=== PATIENT | male | born 1935 | race Caucasian/White ===

== ENCOUNTER 2022-10-16 08:01 | Inpatient (IN) | payer MEDICARE ==
[~2022-10-16] VITALS: Ht 182.9 cm; Wt 97.2 kg
[2022-10-16 08:01] VITALS: BP_SYST 104
--- NOTE | 2022-10-16 08:01 | NUR ---
BROUGHT IN BY [facility], PLACED IN BED #8 AND TRIAGED. REPORT GIVEN TO LAVELL
[2022-10-16] MEDS ORDERED: NACL 0.9% 1,000 ML IV ONE ×2 (08:15→15:00)
--- NOTE | 2022-10-16 09:00 | NUR ---
UNABLE TO GAIN IV ACCESS PERIPHERALLY, MD MITCHELL UNABLE TO OBTAIN PERIPHERAL EJ. MD MITCHELL AT BEDSIDE PLACING CENTRAL LINE FOR IV ACCESS AND BLOOD DRAW. PT TOLERATED WELL. XRAY ORDERED TO VERIFY PLACEMENT. PER MD MITCHELL, OK TO USE FOR IV FLUIDS. VSS. NAD NOTED. WILL CONT TO MONITOR PT.
--- NOTE | 2022-10-16 09:05 | NUR ---
SON DINAH FRAGA CALLED IN AT [phone] CALL BACK NUMBER [phone]
[2022-10-16 09:11] LABS: ANION GAP 13 (5-15); CALCIUM 8.4 mg/dL (8.4-11.0); CHLORIDE 106 mmol/L (98-107); CREATININE 2.42 mg/dL (0.55-1.30); GLUCOSE 236 mg/dL (70-99); UREA NITROGEN, BLOOD 98 mg/dL (8-21)
[2022-10-16 09:17] LABS: ALANINE AMINOTRANSFERASE 46 U/L (12-78); ALBUMIN 2.2 g/dL (3.4-4.8); AMYLASE 65 U/L (0-100); ASPARTATE AMINOTRANSFERASE 26 U/L (10-37); LIPASE 303 U/L (73-393); TOTAL BILIRUBIN 0.4 mg/dL (0.0-1.0)
[2022-10-16 09:19] LABS: HEMATOCRIT 29.5 % (36-54); HEMOGLOBIN 9.6 g/dL (14.0-18.0); MEAN CORPUSCULAR HEMOGLOBIN 32 pg (27-31); MEAN CORPUSCULAR HGB CONC 33 % (32-36); MEAN CORPUSCULAR VOLUME 98 fL (79.0-98.0); PLATELET COUNT (AUTO) 273 K/uL (130-430); RED BLOOD CELL COUNT(AUTO) 3.02 MIL/uL (4.2-6.2); RED CELL DISTRIBUTION WIDTH 14.8 % (9.0-15.0); WHITE BLOOD COUNT (AUTO) 25.6 K/uL (4.8-10.8)
[2022-10-16 09:35] LABS: INR 1.2 (0.80-1.20)
[2022-10-16 10:00] LABS: ATYPICAL LYMPHOCYTES % 11 % (0-0); BASOPHILS % (MANUAL) 0 % (0-2); EOSINOPHILS % (MANUAL) 0 % (0-7); LYMPHOCYTES % (MANUAL) 4 % (20-46); MONOCYTES % (MANUAL) 2 % (0-11)
[2022-10-16] MEDS ORDERED: PIPERACILLIN/TAZO 4.5GM/DEX-IS 100 ML IV SCH (10:00)
[2022-10-16 10:01] LABS: METAMYELOCYTES % 3 % (0-0); MYELOCYTES % 1 % (0-0)
[2022-10-16] MEDS ORDERED: PIPERACILLIN/TAZO 4.5GM/DEX-IS 100 ML IV ONE (10:03)
--- NOTE | 2022-10-16 10:10 | NUR ---
[facility] CONTACTED FOR AUTHORIZATION OF ADMISSION.
--- NOTE | 2022-10-16 10:38 | NUR ---
[facility] CONTACTED FOR ADMISSION AUTHORIZATION. [facility] (DR. COHEN) WILL RETURN CALL TO SPEAK W/ DR. MITCHELL.
--- NOTE | 2022-10-16 10:45 | NUR ---
DR. FENG W/ DR. COHEN ([facility] ) REGARDING THE PT'S CASE FOR AUTHORIZATION.
[2022-10-16] MEDS ORDERED: VANCOMYCIN HCL 1,500 MG in NS 250 ML IV ONE (11:00)
--- NOTE | 2022-10-16 11:16 | NUR ---
PENDING AUTHORIZATION NUMBER FROM [facility].
--- NOTE | 2022-10-16 11:30 | NUR ---
[facility] AUTHORIZATION #[id number]. [facility] IS LOOKING FOR BED FOR PATIENT. [facility] WILL CALL WITH UPDATE.
--- NOTE | 2022-10-16 12:55 | NUR ---
Admit bed requested Patient will be admitted to care of . Admitted to TELE unit. Diagnosis GI BLEED Inpatient (Yes or No) Y Observation (Yes or No) N Orientation concerns or request close to nursing station (Yes or No) N Covid Status POSITIVE On vent or bipap N Isolation requirements Y Needs a sitter N From Home (Yes or if No enter name of facility) HOME Requires Dialysis (Yes or No) N Med Rec Completed (Yes of No) UNAVAILABLE/POOR HISTORIAN
--- NOTE | 2022-10-16 13:00 | NUR ---
UNABLE TO OBTAIN MED REC. PT IS CONFUSED, DOES NOT HAVE LIST AND DOES NOT HAVE EMERGENCY CONTACT IN [employer] TO ATTEMPT TO CALL AND ASK ABOUT MEDICINES TAKEN AT HOME.
[2022-10-16] MEDS ORDERED: DEXA6TAB5 PO (16:20)
[2022-10-16] MEDS ORDERED: LIP40 PO (16:20)
[2022-10-16] MEDS ORDERED: NITSL SL (16:20)
[2022-10-16] MEDS ORDERED: NEU100 PO (16:20)
[2022-10-16] MEDS ORDERED: LEVO500T20 PO (16:20)
[2022-10-16] MEDS ORDERED: ALBU90AE2 (16:20)
[2022-10-16] MEDS ORDERED: CYAN100097 PO (16:20)
[2022-10-16] MEDS ORDERED: APIX5TAB PO (16:20)
[2022-10-16] MEDS ORDERED: CLOP75TA2 PO (16:20)
[2022-10-16] MEDS ORDERED: METR-154 PO (16:20)
[2022-10-16] MEDS ORDERED: FURO-150 PO (16:20)
[2022-10-16] MEDS ORDERED: POTA10TA58 PO (16:20)
[2022-10-16] MEDS ORDERED: FOLI-43 PO (16:20)
[2022-10-16] MEDS ORDERED: COLC0.6C3 PO (16:20)
[2022-10-16] MEDS ORDERED: RANO500T2 PO (16:20)
[2022-10-16] MEDS ORDERED: ECO81 PO (16:20)
[2022-10-16] MEDS ORDERED: METO25CA PO (16:20)
[2022-10-16 17:05] LABS: HEMATOCRIT 30.4 % (36-54); HEMOGLOBIN 9.9 g/dL (14.0-18.0); MEAN CORPUSCULAR HEMOGLOBIN 32 pg (27-31); MEAN CORPUSCULAR HGB CONC 33 % (32-36); MEAN CORPUSCULAR VOLUME 97 fL (79.0-98.0); PLATELET COUNT (AUTO) 273 K/uL (130-430); RED BLOOD CELL COUNT(AUTO) 3.12 MIL/uL (4.2-6.2); RED CELL DISTRIBUTION WIDTH 14.9 % (9.0-15.0)
[2022-10-16 17:27] LABS: WHITE BLOOD COUNT (AUTO) 36.1 K/uL (4.8-10.8)
--- NOTE | 2022-10-16 17:30 | NUR ---
LAB CALLED W/ CRITICAL WBC VALUE OF 36.1. VALUE REPORT TO .
[2022-10-16 17:48] LABS: BAND % (MANUAL) 8 % (0-6); BASOPHILS % (MANUAL) 0 % (0-2); EOSINOPHILS % (MANUAL) 0 % (0-7); LYMPHOCYTES % (MANUAL) 5 % (20-46); METAMYELOCYTES % 1 % (0-0); MONOCYTES % (MANUAL) 7 % (0-11)
[2022-10-16] MEDS ORDERED: PIPERACILLIN/TAZO 3.375 GM in NS 50 ML IV SCH (18:00)
[2022-10-16] MEDS ORDERED: PIPERACILLIN/TAZOBACTAM 3.375 GM/VIAL (ZOSYN) IV ONE (18:09)
--- NOTE | 2022-10-16 18:30 | NUR ---
Placed in room 120A, report given to RHINA SHANE AT BEDSIDE. ALL QUESTIONS ANSWERED. PT COVID+. AAOX4. 4LPM VIA N/C. VSS. NAD NOTED. END OF CARE.
--- NOTE | 2022-10-16 18:30 | NUR ---
ADMISSION NOTES, RECEIVED PT FROM [facility] C/O SVITLANA AWY, PT ADMITTED FOR COVID 19 A,D GI BLEED UNDER THE CARE OF DR ORDOÑEZ. SAFETY PREC IN PLACE.CALL LIGHT IN REACH, BED IN LOW POSITION.
[2022-10-16 18:35] VITALS: BP_SYST 102
--- NOTE | 2022-10-16 19:52 | NUR ---
ENDORSED TO NIGHT SVITLANA GAINES THAT PT HAS NOT BEEN ADMITTED YET BECAUSE PT WAS DIRTY WHEN HE CAME IN AND I GIVE PT A CHG BATH AND CHANGED HIS CHUCKS. I ALSO SPOKE WITH HER DAUGHTER AND TOLD HER THE THE ONLY BELONGINGS THE PT HAS AT BEDSIDE IS HIS CA AND [facility] ID, AND THE CUT UP SWEAT SHIRT WAS DIRTY AND I TRASHED IT. SHE SAID IT IS OKAY. TOLD HER THAT PT IS LOOKING FOR HIS MONEY ( 248 $). SHE TOLD ME THAT IT IS IN THEIR HOUSE.
[2022-10-16 20:00] VITALS: BP_SYST 110
[2022-10-16 20:52] VITALS: BP_SYST 101
[2022-10-16] MEDS: PIPERACILLIN/TAZO 3.375 GM in NS 50 ML IV SCH (23:51)
[2022-10-17] MEDS ORDERED: PIPERACILLIN/TAZOBACTAM 3.375 GM/ D5W 50 ML IV SCH ×2
[2022-10-17 00:20] VITALS: BP_SYST 108
--- NOTE | 2022-10-17 03:40 | NUR ---
Consultation Paged Reason for Consultation: Covid +, Sepsis Was consult called: Y Person who was notified: Delphine Consulting Physician: Stan Newman Ordering Physician: Dr. Diaz
[2022-10-17 04:00] VITALS: BP_SYST 110
--- NOTE | 2022-10-17 04:40 | NUR ---
Consultation Paged Reason for Consultation:GI BLEED Was consult called: Y Person who was notified: Delphine Consulting Physician: Dr. Acosta (Dr. Montgomery is applications administrator) Ordering Physician: Dr. Diaz
[2022-10-17] MEDS: PIPERACILLIN/TAZO 3.375 GM in NS 50 ML IV SCH ×3 (06:21→18:37)
[2022-10-17 06:53] LABS: BASOPHILS % (AUTO) 0.1 % (0.0-2.0); HEMATOCRIT 24.1 % (36-54); LYMPHOCYTES % (AUTO) 6.9 % (20.5-51.5); MEAN CORPUSCULAR HEMOGLOBIN 32 pg (27-31); MEAN CORPUSCULAR HGB CONC 33 % (32-36); MEAN CORPUSCULAR VOLUME 97 fL (79.0-98.0); MONOCYTES # (AUTO) 2.6 K/uL (0.0-1.0); MONOCYTES % (AUTO) 8.9 % (1.7-9.3); NEUTROPHILS # (AUTO) 24.6 K/uL (1.8-7.7); PLATELET COUNT (AUTO) 233 K/uL (130-430); RED BLOOD CELL COUNT(AUTO) 2.47 MIL/uL (4.2-6.2); RED CELL DISTRIBUTION WIDTH 14.7 % (9.0-15.0); WHITE BLOOD COUNT (AUTO) 29.2 K/uL (4.8-10.8)
[2022-10-17 06:59] LABS: NEUTROPHILS % (AUTO) 84.1 % (40.0-70.0)
--- NOTE | 2022-10-17 07:17 | NUR ---
Patient davidjessa;janina last night, got his scheduled medications, did not verbalize any pain. to endorse to oncoming shift for continuity of care
[2022-10-17 07:52] LABS: ALANINE AMINOTRANSFERASE 44 U/L (12-78); ANION GAP 11 (5-15); ASPARTATE AMINOTRANSFERASE 31 U/L (10-37); CALCIUM 7.4 mg/dL (8.4-11.0); CHLORIDE 112 mmol/L (98-107); CREATININE 2.93 mg/dL (0.55-1.30); GLUCOSE 158 mg/dL (70-99); THYROID STIMULATING HORMONE 1.31 uIu/mL (0.36-3.74); TOTAL BILIRUBIN 0.8 mg/dL (0.0-1.0)
[2022-10-17 08:19] LABS: UREA NITROGEN, BLOOD 123 mg/dL (8-21)
[2022-10-17 08:50] LABS: CHOLESTEROL 85 mg/dL (<200); HDL CHOLESTEROL 31 mg/dL (>45); TRIGLYCERIDES 248 mg/dL (30-150)
[2022-10-17] MEDS ORDERED: VANCOMYCIN HCL 1,500 MG in NS 250 ML IV ONE (10:00)
[2022-10-17] MEDS: NACL 0.9% 1,000 ML IV SCH (11:41)
[2022-10-17 13:21] VITALS: BP_SYST 114
--- NOTE | 2022-10-17 14:12 | NUR ---
CM: Faxed Clinicals to [facility]
[2022-10-17 15:17] LABS: BILIRUBIN,URINE NEGATIVE (NEGATIVE); CLARITY/URINE CLEAR (CLEAR); COLOR,URINE YELLOW (YELLOW); GLUCOSE,URINE NEGATIVE (NEGATIVE); KETONES,URINE NEGATIVE (NEGATIVE); LEUKOCYTE ESTERASE ,URINE NEGATIVE (NEGATIVE); NITRITE, URINE NEGATIVE (NEGATIVE); PROTEIN URINE NEGATIVE (NEGATIVE); UROBILINOGEN,URINE 0.2 (0.2-1.0)
[2022-10-17 15:21] LABS: BLOOD, URINE TRACE (NEGATIVE)
[2022-10-17 15:35] LABS: BACTERIA,URINE RARE /HPF (None Seen); MUCUS,URINE 1+ /LPF (None Seen); WBC,URINE 0-3 /HPF (0-3)
--- NOTE | 2022-10-17 16:54 | NUR ---
0800: NO S/S OF ANY ACUTE DISTRESS NOTED. ABNORMAL LAB TO DR. Christiana LOOMIS WITH NEW ORDER RECEIVED NOTED AND WILL CARRY OUT ORDERED. 1030: ABNORMAL LAB RELAYED TO DR. ORDOÑEZ WITH NEW ORDER RECEIVED FOR NEP.CONSULT WITH DR. FLORES. 1200: RETURN CALL FROM DR. Lizet HUTCHINS COVERING FOR DR. FLORES WITH NEW ORDERS RECEIVED NOTED AND CARRY OUT ORDERED. 1600: ADMINISTERED IV ANTIBIOTIC ORDERED NO ADVERSE REACTION NOTED. WILL CONTINUE TO MONITOR PATIENT
[2022-10-17 17:36] VITALS: BP_SYST 114
--- NOTE | 2022-10-17 19:00 | NUR ---
DR. Lizet HUTCHINS DID COME AND SEE PATIENT TONIGHT WITH NEW ORDER FOR KIDNEY JEMAL, INCREASE IV FLUID TO 75 CC/HR, LAB WORK FOR TOMORROW. URINE FOR UA AND URINE FOR EOSINOPHIL, LAB WILL USE UA THAT WAS SENT EARLIER TODAY. ENDORSED PATIENT TO PM SHIFT NURSE.
[2022-10-17 20:00] VITALS: BP_SYST 127
[2022-10-17] MEDS: ATORVASTATIN 20 MG TABLET PO SCH (21:21)
[2022-10-17] MEDS: RANOLAZINE 500 MG TAB.SR.12H PO SCH (21:21)
[2022-10-17 21:22] VITALS: BP_SYST 121
[2022-10-18] VITALS: BP_SYST 127
[2022-10-18] MEDS: PIPERACILLIN/TAZO 3.375 GM in NS 50 ML IV SCH ×4 (02:41→19:08)
[2022-10-18 04:00] VITALS: BP_SYST 119
--- NOTE | 2022-10-18 07:30 | NUR ---
Patient stable this shift, he is going for EGD today vitals within normal, to endorse to oncoming shift for continuity of care
[2022-10-18] MEDS ORDERED: DIPHENHYDRAMINE INJ 50 MG/ML VIAL ONE (07:46)
[2022-10-18] MEDS ORDERED: SIMETHICONE 40 MG/0.6 ML ML ONE (07:46)
[2022-10-18] MEDS ORDERED: BENZOCAINE 20% 0.5mL UD SPRAY MM ONE (07:46)
[2022-10-18] MEDS ORDERED: fentaNYL CITRATE/PF 100 MCG/2 ML AMP ONE (07:47)
[2022-10-18] MEDS ORDERED: MIDAZOLAM HCL 5 MG/5 ML VIAL ONE (07:47)
[2022-10-18 08:00] VITALS: BP_SYST 142
--- NOTE | 2022-10-18 08:00 | NUR ---
Initial Notes Sleepy but responsive, on o2 4L at this time, o2 sat at 97%. Denies any pain or discomfort. IVF infusing well. Aware of having EGD today. Keep NPO. IVF infusing well. Afebrile. Bed alarm on. Maintain on contact/droplet isolation.
[2022-10-18 08:04] LABS: ALANINE AMINOTRANSFERASE 38 U/L (12-78); ALBUMIN 1.9 g/dL (3.4-4.8); ANION GAP 10 (5-15); ASPARTATE AMINOTRANSFERASE 24 U/L (10-37); CHLORIDE 111 mmol/L (98-107); GLUCOSE 162 mg/dL (70-99); PHOSPHORUS 5.5 mg/dL (2.7-4.5); TOTAL BILIRUBIN 0.6 mg/dL (0.0-1.0); VANCOMYCIN,RANDOM 21.5 ug/mL
[2022-10-18 08:27] LABS: BASOPHILS % (AUTO) 0.1 % (0.0-2.0); EOSINOPHILS % (AUTO) 0.1 % (0.0-4.0); LYMPHOCYTES # (AUTO) 1.6 K/uL (1.0-5.5); LYMPHOCYTES % (AUTO) 5.8 % (20.5-51.5); MEAN CORPUSCULAR HEMOGLOBIN 32 pg (27-31); MEAN CORPUSCULAR HGB CONC 33 % (32-36); MEAN CORPUSCULAR VOLUME 100 fL (79.0-98.0); MONOCYTES # (AUTO) 1.8 K/uL (0.0-1.0); MONOCYTES % (AUTO) 6.4 % (1.7-9.3); NEUTROPHILS # (AUTO) 24.7 K/uL (1.8-7.7); PLATELET COUNT (AUTO) 212 K/uL (130-430); WHITE BLOOD COUNT (AUTO) 28.2 K/uL (4.8-10.8)
[2022-10-18 08:28] LABS: CALCIUM 6.7 mg/dL (8.4-11.0)
[2022-10-18 08:29] LABS: UREA NITROGEN, BLOOD 114 mg/dL (8-21)
[2022-10-18 08:51] LABS: HEMATOCRIT 20.9 % (36-54); HEMOGLOBIN 6.8 g/dL (14.0-18.0)
[2022-10-18] MEDS ORDERED: COLCHICINE 0.6 MG TABLET PO SCH (09:00)
[2022-10-18] MEDS: FOLIC ACID 1 MG TABLET PO SCH (09:00)
[2022-10-18] MEDS ORDERED: FUROSEMIDE 20 MG TABLET PO SCH (09:00)
[2022-10-18] MEDS: GABAPENTIN 100 MG CAPSULE PO SCH (09:00)
[2022-10-18] MEDS: RANOLAZINE 500 MG TAB.SR.12H PO SCH ×2 (09:00→20:44)
--- NOTE | 2022-10-18 09:00 | NUR ---
Notes/EGD- PATIENT is having EGD at bedside at this time.
[2022-10-18] MEDS ORDERED: PANTOPRAZOLE SODIUM 40 MG/VIAL (PROTONIX) IVP ONE (10:15)
[2022-10-18] MEDS: METOPROLOL SUCCINATE 25 MG TAB.SR.24H (TOPROL XL) PO SCH (11:29)
[2022-10-18] MEDS: NACL 0.9% 1,000 ML IV SCH ×2 (11:30→14:25)
[2022-10-18] MEDS ORDERED: CALCIUM GLUCONATE 1 GM in NS 100 ML IV ONE (12:45)
[2022-10-18 12:55] LABS: BILIRUBIN,URINE NEGATIVE (NEGATIVE); CLARITY/URINE CLEAR (CLEAR); COLOR,URINE YELLOW (YELLOW); GLUCOSE,URINE NEGATIVE (NEGATIVE); KETONES,URINE NEGATIVE (NEGATIVE); LEUKOCYTE ESTERASE ,URINE NEGATIVE (NEGATIVE); NITRITE, URINE NEGATIVE (NEGATIVE); PROTEIN URINE TRACE (NEGATIVE); UROBILINOGEN,URINE 0.2 (0.2-1.0)
[2022-10-18 12:57] LABS: BLOOD, URINE TRACE (NEGATIVE)
--- NOTE | 2022-10-18 13:00 | NUR ---
Pagecuca Bajwa- follow up consults.
[2022-10-18 13:01] LABS: NEUTROPHILS % (AUTO) 87.6 % (40.0-70.0)
[2022-10-18 13:03] LABS: BACTERIA,URINE FEW /HPF (None Seen); MUCUS,URINE 1+ /LPF (None Seen)
--- NOTE | 2022-10-18 14:00 | NUR ---
ultrasound at bedside doing Renal ultrasound.
[2022-10-18 14:42] VITALS: BP_SYST 162
--- NOTE | 2022-10-18 15:29 | NUR ---
Blood transfusion- Blood transfusion started, teach patient on blood transfusion reaction.
[2022-10-18 17:37] VITALS: BP_SYST 136
--- NOTE | 2022-10-18 18:23 | NUR ---
Antibiotics- Unable to give antibiotics at this time. blood transfusion still infusing. will endorse
--- NOTE | 2022-10-18 18:40 | NUR ---
blood transfusion just done, no reaction noted.
[2022-10-18 20:00] VITALS: BP_SYST 127
[2022-10-18] MEDS: ATORVASTATIN 20 MG TABLET PO SCH (20:43)
[2022-10-18] MEDS: PANTOPRAZOLE SODIUM 40 MG/VIAL (PROTONIX) IVP SCH (20:43)
[2022-10-19] VITALS (7 sets, daily range): BP systolic 114–136
[2022-10-19] MEDS: PIPERACILLIN/TAZO 3.375 GM in NS 50 ML IV SCH ×5 (00:47→23:36)
[2022-10-19] MEDS: NACL 0.9% 1,000 ML IV SCH ×3 (00:48→23:35)
--- NOTE | 2022-10-19 08:18 | NUR ---
PATIENT RECEIVED AWAKE AND ALERT TO PERSON AND PLACE. ABLE TO COMMUNICATE NEEDS. ON TELE MONITORING. +1 EDEMA NOTED TO BLE. RECEIVED PATIENT ON 3L NASAL CANULA, TOLERATING WELL .PATIENT IS INCONTINENT GI/. RECEIVED PATIENT WITH RAMOS CATHETER IN PLACE, SECURED WITH STAT LOCK. LAST BM LAST NIGHT PER NOC RN. PATIENT HAS NOTED GENERALIZED WEAKNESS. BED REST AT THIS TIME. ON ISOLATION FOR COVID PNA. ADMITTED FOR GI BLEED, S/P EGD.
[2022-10-19] MEDS: calcitrioL 0.25 MCG CAPSULE PO SCH (09:02)
[2022-10-19] MEDS: FOLIC ACID 1 MG TABLET PO SCH (09:02)
[2022-10-19] MEDS: RANOLAZINE 500 MG TAB.SR.12H PO SCH ×2 (09:02→20:28)
[2022-10-19] MEDS: GABAPENTIN 100 MG CAPSULE PO SCH (09:02)
[2022-10-19] MEDS: PANTOPRAZOLE SODIUM 40 MG/VIAL (PROTONIX) IVP SCH ×2 (09:02→20:29)
[2022-10-19] MEDS: METOPROLOL SUCCINATE 25 MG TAB.SR.24H (TOPROL XL) PO SCH (09:03)
--- NOTE | 2022-10-19 10:10 | NUR ---
SPOKE WITH DR TORRES, RECEIVED ORDER TO ADVANCE DIET PATIENT TOLERATED PO INTAKE OF FULL LIQUID DIET THIS MORNING
[2022-10-19 13:37] LABS: BASOPHILS # (AUTO) 0.1 K/uL (0.0-0.2); BASOPHILS % (AUTO) 0.5 % (0.0-2.0); EOSINOPHILS # (AUTO) 0.1 K/uL (0.0-0.4); EOSINOPHILS % (AUTO) 0.4 % (0.0-4.0); LYMPHOCYTES # (AUTO) 0.9 K/uL (1.0-5.5); MEAN CORPUSCULAR HEMOGLOBIN 32 pg (27-31); MEAN CORPUSCULAR HGB CONC 33 % (32-36); MEAN CORPUSCULAR VOLUME 99 fL (79.0-98.0); MONOCYTES # (AUTO) 1.1 K/uL (0.0-1.0); NEUTROPHILS % (AUTO) 86.1 % (40.0-70.0); PLATELET COUNT (AUTO) 169 K/uL (130-430); RED BLOOD CELL COUNT(AUTO) 2.03 MIL/uL (4.2-6.2); RED CELL DISTRIBUTION WIDTH 15.6 % (9.0-15.0); WHITE BLOOD COUNT (AUTO) 15.1 K/uL (4.8-10.8)
[2022-10-19 13:53] LABS: ALANINE AMINOTRANSFERASE 32 U/L (12-78); ALBUMIN 1.7 g/dL (3.4-4.8); ANION GAP 7 (5-15); ASPARTATE AMINOTRANSFERASE 22 U/L (10-37); CALCIUM 7.2 mg/dL (8.4-11.0); CHLORIDE 117 mmol/L (98-107); CREATININE 2.17 mg/dL (0.55-1.30); GLUCOSE 146 mg/dL (70-99); PHOSPHORUS 3.4 mg/dL (2.7-4.5); TOTAL BILIRUBIN 0.5 mg/dL (0.0-1.0); UREA NITROGEN, BLOOD 80 mg/dL (8-21)
[2022-10-19 14:15] LABS: VANCOMYCIN,RANDOM 12.7 ug/mL
[2022-10-19 14:18] LABS: HEMATOCRIT 20.1 % (36-54); HEMOGLOBIN 6.6 g/dL (14.0-18.0)
--- NOTE | 2022-10-19 14:28 | NUR ---
CRITICAL LAB H/H 6.6/20.1 DR ORDOÑEZ AWARE, OBTAINED ORDER FOR 1 UNIT PRBC
[2022-10-19] MEDS: VANCOMYCIN HCL 1,500 MG in NS 250 ML IV SCH (16:10)
--- NOTE | 2022-10-19 17:54 | NUR ---
DENIES PAIN AT THIS TIME. DINNER TRAY SET UP FOR PATIENT. RIGHT IJ PATENT AND FLUSHING WELL. RED PORT WITH BLOOD RETURN
--- NOTE | 2022-10-19 18:56 | NUR ---
1 UNIT PRBC STARTED. PERFORMED 2 RN VERIFICATION AT BEDSIDE WITH LEONARD SHANE. PATIENT HAD NO S/SX OF TRANSFUSION REACTION WITHIN FIRST 15 MINUTES. BLOOD RUNNING AT 100 ML/HR. IVF STOPPED WHILE PATIENT RECEIVING BLOOD.
[2022-10-19] MEDS: ATORVASTATIN 20 MG TABLET PO SCH (20:28)
[2022-10-20] VITALS: BP_SYST 126
[2022-10-20] MEDS: PIPERACILLIN/TAZO 3.375 GM in NS 50 ML IV SCH ×4 (05:38→23:36)
[2022-10-20 08:46] VITALS: BP_SYST 130
[2022-10-20 09:23] LABS: ALANINE AMINOTRANSFERASE 32 U/L (12-78); ANION GAP 6 (5-15); ASPARTATE AMINOTRANSFERASE 25 U/L (10-37); CALCIUM 7.3 mg/dL (8.4-11.0); CHLORIDE 115 mmol/L (98-107); CREATININE 1.95 mg/dL (0.55-1.30); GLUCOSE 106 mg/dL (70-99); PHOSPHORUS 3.3 mg/dL (2.7-4.5); TOTAL BILIRUBIN 0.8 mg/dL (0.0-1.0); UREA NITROGEN, BLOOD 60 mg/dL (8-21)
[2022-10-20 09:31] LABS: EOSINOPHILS # (AUTO) 0.2 K/uL (0.0-0.4); EOSINOPHILS % (AUTO) 1.2 % (0.0-4.0); HEMATOCRIT 25.6 % (36-54); HEMOGLOBIN 8.2 g/dL (14.0-18.0); LYMPHOCYTES # (AUTO) 1.2 K/uL (1.0-5.5); LYMPHOCYTES % (AUTO) 8.3 % (20.5-51.5); MEAN CORPUSCULAR HEMOGLOBIN 31 pg (27-31); MEAN CORPUSCULAR HGB CONC 32 % (32-36); MEAN CORPUSCULAR VOLUME 97 fL (79.0-98.0); MONOCYTES # (AUTO) 1.1 K/uL (0.0-1.0); MONOCYTES % (AUTO) 7.1 % (1.7-9.3); NEUTROPHILS # (AUTO) 12.4 K/uL (1.8-7.7); NEUTROPHILS % (AUTO) 83.4 % (40.0-70.0); PLATELET COUNT (AUTO) 165 K/uL (130-430); RED BLOOD CELL COUNT(AUTO) 2.65 MIL/uL (4.2-6.2); WHITE BLOOD COUNT (AUTO) 14.8 K/uL (4.8-10.8)
[2022-10-20] MEDS: PANTOPRAZOLE SODIUM 40 MG/VIAL (PROTONIX) IVP SCH ×2 (09:55→20:24)
[2022-10-20] MEDS: calcitrioL 0.25 MCG CAPSULE PO SCH (09:55)
[2022-10-20] MEDS: GABAPENTIN 100 MG CAPSULE PO SCH (09:56)
[2022-10-20] MEDS: METOPROLOL SUCCINATE 25 MG TAB.SR.24H (TOPROL XL) PO SCH (09:56)
[2022-10-20] MEDS: FOLIC ACID 1 MG TABLET PO SCH (09:56)
[2022-10-20] MEDS: RANOLAZINE 500 MG TAB.SR.12H PO SCH ×2 (09:56→20:24)
[2022-10-20] MEDS: NACL 0.9% 1,000 ML IV SCH ×2 (09:57→16:25)
[2022-10-20 11:44] VITALS: BP_SYST 124
--- NOTE | 2022-10-20 14:48 | NUR ---
ROUNDS LATE ENTRY DUE TO PATIENT CARE 0800- ASSUMED PATIENT CARE. IN BED AAOX4. DENIES PAIN AT THIS TIME. 100% ON 2 LITERS NASAL CANNULA. OXYGEN SUPPLEMENT DISCONTINUED AND ENCOURAGED PATIENT DEEP BREATHING EXERCISES. VERBALIZED UNDERSATNDING 0840- 1 BROWNISH BLACK BM. CONSUMED 100% BREAKFAST 1200- 99% O2 SAT ON ROOM AIR
[2022-10-20 16:50] VITALS: BP_SYST 126
--- NOTE | 2022-10-20 18:15 | NUR ---
SUMMARY OF CARE TURNED TO SIDE. KEPT CLEAN AND DRY. ALL NEEDS MET
[2022-10-20 20:00] VITALS: BP_SYST 138
[2022-10-20] MEDS: ATORVASTATIN 20 MG TABLET PO SCH (20:24)
[2022-10-21] VITALS: BP_SYST 127
[2022-10-21] MEDS: PIPERACILLIN/TAZO 3.375 GM in NS 50 ML IV SCH ×4 (05:02→23:13)
[2022-10-21] MEDS: NACL 0.9% 1,000 ML IV SCH ×3 (05:03→22:25)
--- NOTE | 2022-10-21 08:00 | NUR ---
Initial notes Patient A/Ox2, no sign of distress. No c/o SOB, breathing even and unlabored No c/o pain at this time. IV infusing patent, no signs of infiltration. Romero catheter intact draining to gravity. All safety precaution secure, will continue to monitor.
[2022-10-21 08:30] VITALS: BP_SYST 152
[2022-10-21] MEDS: PANTOPRAZOLE SODIUM 40 MG/VIAL (PROTONIX) IVP SCH ×2 (09:52→23:10)
[2022-10-21] MEDS: METOPROLOL SUCCINATE 25 MG TAB.SR.24H (TOPROL XL) PO SCH (09:53)
[2022-10-21] MEDS: FOLIC ACID 1 MG TABLET PO SCH (09:53)
[2022-10-21] MEDS: calcitrioL 0.25 MCG CAPSULE PO SCH (09:53)
[2022-10-21] MEDS: RANOLAZINE 500 MG TAB.SR.12H PO SCH ×2 (09:53→23:11)
[2022-10-21] MEDS: GABAPENTIN 100 MG CAPSULE PO SCH (09:53)
[2022-10-21 12:03] VITALS: BP_SYST 155
[2022-10-21 13:20] LABS: BASOPHILS % (AUTO) 0.2 % (0.0-2.0); EOSINOPHILS # (AUTO) 0.3 K/uL (0.0-0.4); EOSINOPHILS % (AUTO) 1.8 % (0.0-4.0); HEMATOCRIT 24.9 % (36-54); HEMOGLOBIN 8.2 g/dL (14.0-18.0); LYMPHOCYTES # (AUTO) 1.2 K/uL (1.0-5.5); MEAN CORPUSCULAR HEMOGLOBIN 32 pg (27-31); MEAN CORPUSCULAR HGB CONC 33 % (32-36); MEAN CORPUSCULAR VOLUME 96 fL (79.0-98.0); MONOCYTES # (AUTO) 1.4 K/uL (0.0-1.0); MONOCYTES % (AUTO) 9.2 % (1.7-9.3); NEUTROPHILS # (AUTO) 12.3 K/uL (1.8-7.7); NEUTROPHILS % (AUTO) 80.8 % (40.0-70.0); PLATELET COUNT (AUTO) 170 K/uL (130-430); RED BLOOD CELL COUNT(AUTO) 2.59 MIL/uL (4.2-6.2); RED CELL DISTRIBUTION WIDTH 16.8 % (9.0-15.0); WHITE BLOOD COUNT (AUTO) 15.1 K/uL (4.8-10.8)
[2022-10-21 13:39] LABS: ANION GAP 6 (5-15); CALCIUM 7.9 mg/dL (8.4-11.0); CHLORIDE 114 mmol/L (98-107); CREATININE 1.75 mg/dL (0.55-1.30); GLUCOSE 123 mg/dL (70-99); UREA NITROGEN, BLOOD 43 mg/dL (8-21)
[2022-10-21 16:30] VITALS: BP_SYST 136
[2022-10-21] MEDS: VANCOMYCIN HCL 1,500 MG in NS 250 ML IV SCH (17:16)
--- NOTE | 2022-10-21 18:55 | NUR ---
Closing notes No c/o pain or SOB, vital signs w/in normal, maintained insolation precaution/safety precaution throughout my shift, will endorse to oncoming nurse.
[2022-10-21 20:00] VITALS: BP_SYST 108
[2022-10-21] MEDS: ATORVASTATIN 20 MG TABLET PO SCH (23:11)
[2022-10-22] MEDS: PIPERACILLIN/TAZO 3.375 GM in NS 50 ML IV SCH ×4 (05:18→23:43)
[2022-10-22 08:00] VITALS: BP_SYST 154
--- NOTE | 2022-10-22 08:00 | NUR ---
Initial notes Received patient A/O x2 oxygen saturation at 96% on 2L NC, no sign of distress. No c/o SOB, breathing even and unlabored, no c/o pain at this time. IV infusing patent. Romero catheter intact draining to gravity. Will maintain all safety/isolation precaution.
[2022-10-22] MEDS: PANTOPRAZOLE SODIUM 40 MG/VIAL (PROTONIX) IVP SCH ×2 (08:29→21:08)
[2022-10-22] MEDS: FOLIC ACID 1 MG TABLET PO SCH (08:30)
[2022-10-22] MEDS: RANOLAZINE 500 MG TAB.SR.12H PO SCH ×2 (08:30→21:08)
[2022-10-22] MEDS: NACL 0.9% 1,000 ML IV SCH ×2 (08:30→18:25)
[2022-10-22] MEDS: calcitrioL 0.25 MCG CAPSULE PO SCH (08:30)
[2022-10-22] MEDS: GABAPENTIN 100 MG CAPSULE PO SCH (08:30)
[2022-10-22] MEDS: METOPROLOL SUCCINATE 25 MG TAB.SR.24H (TOPROL XL) PO SCH (08:31)
[2022-10-22 12:08] VITALS: BP_SYST 124
[2022-10-22 16:35] VITALS: BP_SYST 145
--- NOTE | 2022-10-22 17:56 | NUR ---
1750- 1756 PT SATURATION 96% ON ROOM AIR. RN AWARE. PLACED PT BACK TO 2L NC. Addendum: 10/22/22 at 1757 by Cynthia Duarte RT Amended: Links added.
--- NOTE | 2022-10-22 18:21 | NUR ---
Closing notes No change in condition, No c/o SOB/pain, vital signs stable, continue safety and isolation precaution. will endorse to oncoming nurse
[2022-10-22 20:00] VITALS: BP_SYST 146
[2022-10-22] MEDS: ATORVASTATIN 20 MG TABLET PO SCH (21:08)
[2022-10-23 00:57] VITALS: BP_SYST 132
[2022-10-23] MEDS: NACL 0.9% 1,000 ML IV SCH ×2 (04:50→16:33)
[2022-10-23] MEDS: PIPERACILLIN/TAZO 3.375 GM in NS 50 ML IV SCH (05:11)
[2022-10-23] MEDS: RANOLAZINE 500 MG TAB.SR.12H PO SCH ×2 (10:33→21:08)
[2022-10-23] MEDS: PANTOPRAZOLE SODIUM 40 MG/VIAL (PROTONIX) IVP SCH ×2 (10:33→21:08)
[2022-10-23] MEDS: FOLIC ACID 1 MG TABLET PO SCH (10:34)
[2022-10-23] MEDS: METOPROLOL SUCCINATE 25 MG TAB.SR.24H (TOPROL XL) PO SCH (10:34)
[2022-10-23] MEDS: GABAPENTIN 100 MG CAPSULE PO SCH (10:34)
[2022-10-23] MEDS: calcitrioL 0.25 MCG CAPSULE PO SCH (10:34)
[2022-10-23 11:36] VITALS: BP_SYST 129
[2022-10-23] MEDS: VANCOMYCIN HCL 1,500 MG in NS 250 ML IV SCH (16:32)
[2022-10-23 16:42] VITALS: BP_SYST 135
--- NOTE | 2022-10-23 17:33 | NUR ---
Nutrition F/U Admitting Diagnosis: GI bleed Reviewed Pertinent Medical/Surgical Hx: Medical Record Medical History Comment: Per EMR review, PMH unknown d/t pt's cognitive impairment. Pt admitted for AMS, hypotension. Dx of sepsis d/t pneumonia, JULI, possible GI bleed and sigmoid diverticulitis, acute blood loss anemia. EGD results 10/18: 2 duodenal ulcers w/o active bleeding. SARS-CoV-2 Ag (Rapid): Positive on 10/16 Subjective Information Supervisor Fabrication deferred bedside visit to reduce transmission of COVID-19. Per MD notes, pt currently tolerating PO diet. Per EMR review, average PO of 83% x 9 meals eating independently. LBM 10/22/22. DC Planning -- pending home O2 evaluation. IBW used to determine estimated nutritional needs d/t pt may be unable to meet goal of >75% intake based on CBW. Current Diet Order/Nutrition Support: GI Soft x 4 days Patient/Significant Other: Unable To Verbalize Education Provided: Not Indicated Pertinent Medications: IV NaCl @75ml, Vanco @125ml, Lipitor, Ramexa, Folic Acid, Neurontin, Calcitriol Pertinent Labs (10/21): Na 144 WNL, BG 123H, BUN 43H, CRE 1.75H, WBC 15.1H, H/H 8.2L/24.9L - all labs improving Anthropotmetrics: Height: 6'0 Weight: 199#/90.3kg Body Mass Index: 26.99 kg/m2 %IBW: 120 Etoile/Adjusted Body Weight: 178#/81kg IBW. Recent Weight Change: Unable to verify Weight Status: Overweight Last BM: Oct 22, 2022 Food Allergies: Unable to verify Skin Integrity Comment: Gaston Score: 12, rectum-redness, [place]-ecchymosis per EMR review 10/22 Estimated Energy Expenditure (kcals/day) 2010-0069 (30-35kcal/kg IBW d/t sepsis) Estimated Protein Required (g/day) 122-162 (1.5-2kcal/kg IBW d/t sepsis) Estimated Fluid Required (l/day) 2-2.3 (25-30kcal/kg IBW d/t GERIAT maintenance) Problem/Etiology/Signs/Symptoms Increased energy needs R/T metabolic demands AEB estimated nutritional needs for sepsis. (Ongoing) Expected Outcomes/Goals Monitor appetite and PO intakes w/ goal of meeting >75% estimated nutritional needs, labs trending WNL, normal GI function, and skin integrity/wt maintenance. Dietitian Recommendations * Continue GI Soft diet * Consider Luis BID (supplements yield 180kcal/day, 5g protein day) * If/when medically appropriate, consider Regular diet Low Risk: F/U in 2-3days Follow Up By: Oct 30, 2022 Co-Signed By: Janee Nichols, MPH, RDN
[2022-10-23 20:00] VITALS: BP_SYST 150
[2022-10-23] MEDS: ATORVASTATIN 20 MG TABLET PO SCH (21:08)
[2022-10-24 00:40] VITALS: BP_SYST 108
[2022-10-24 02:04] VITALS: BP_SYST 119
[2022-10-24] MEDS: NACL 0.9% 1,000 ML IV SCH (06:44)
[2022-10-24 07:52] LABS: BASOPHILS # (AUTO) 0.1 K/uL (0.0-0.2); BASOPHILS % (AUTO) 0.6 % (0.0-2.0); EOSINOPHILS # (AUTO) 0.2 K/uL (0.0-0.4); EOSINOPHILS % (AUTO) 1.5 % (0.0-4.0); HEMATOCRIT 27.1 % (36-54); HEMOGLOBIN 8.9 g/dL (14.0-18.0); LYMPHOCYTES # (AUTO) 1.2 K/uL (1.0-5.5); LYMPHOCYTES % (AUTO) 8.1 % (20.5-51.5); MEAN CORPUSCULAR HEMOGLOBIN 32 pg (27-31); MEAN CORPUSCULAR HGB CONC 33 % (32-36); MEAN CORPUSCULAR VOLUME 97 fL (79.0-98.0); MONOCYTES # (AUTO) 1.2 K/uL (0.0-1.0); MONOCYTES % (AUTO) 8.6 % (1.7-9.3); NEUTROPHILS # (AUTO) 11.7 K/uL (1.8-7.7); NEUTROPHILS % (AUTO) 81.2 % (40.0-70.0); PLATELET COUNT (AUTO) 165 K/uL (130-430); RED BLOOD CELL COUNT(AUTO) 2.79 MIL/uL (4.2-6.2); RED CELL DISTRIBUTION WIDTH 17.7 % (9.0-15.0); WHITE BLOOD COUNT (AUTO) 14.4 K/uL (4.8-10.8)
[2022-10-24 08:00] VITALS: BP_SYST 121
[2022-10-24 08:11] LABS: ANION GAP 9 (5-15); CALCIUM 7.9 mg/dL (8.4-11.0); CHLORIDE 111 mmol/L (98-107); CREATININE 1.66 mg/dL (0.55-1.30); GLUCOSE 111 mg/dL (70-99); PHOSPHORUS 3.9 mg/dL (2.7-4.5); UREA NITROGEN, BLOOD 30 mg/dL (8-21)
[2022-10-24] MEDS: METOPROLOL SUCCINATE 25 MG TAB.SR.24H (TOPROL XL) PO SCH (09:00)
[2022-10-24] MEDS: calcitrioL 0.25 MCG CAPSULE PO SCH (10:19)
[2022-10-24] MEDS: GABAPENTIN 100 MG CAPSULE PO SCH (10:19)
[2022-10-24] MEDS: PANTOPRAZOLE SODIUM 40 MG/VIAL (PROTONIX) IVP SCH ×2 (10:19→21:47)
[2022-10-24] MEDS: FOLIC ACID 1 MG TABLET PO SCH (10:19)
[2022-10-24] MEDS: RANOLAZINE 500 MG TAB.SR.12H PO SCH ×2 (10:19→21:47)
[2022-10-24 13:39] VITALS: BP_SYST 98
[2022-10-24 20:00] VITALS: BP_SYST 119
[2022-10-24] MEDS ORDERED: FUROSEMIDE 40 MG/4 ML VIAL IVP ONE (21:00)
[2022-10-24] MEDS: ATORVASTATIN 20 MG TABLET PO SCH (21:48)
[2022-10-24] MEDS: ALBUMIN HUMAN 25% 50 ML IV SCH (22:45)
[2022-10-25] VITALS: BP_SYST 108
[2022-10-25] MEDS: ALBUMIN HUMAN 25% 50 ML IV SCH ×2 (03:34→09:45)
[2022-10-25] MEDS: NACL 0.9% 1,000 ML IV SCH (06:02)
--- NOTE | 2022-10-25 07:00 | NUR ---
Report received from weight shifter RN for continuity of care. Patient stable.
[2022-10-25 07:29] LABS: ANION GAP 12 (5-15); CHLORIDE 109 mmol/L (98-107); CREATININE 1.93 mg/dL (0.55-1.30); GLUCOSE 115 mg/dL (70-99); UREA NITROGEN, BLOOD 37 mg/dL (8-21)
[2022-10-25 08:29] LABS: BASOPHILS # (AUTO) 0.1 K/uL (0.0-0.2); BASOPHILS % (AUTO) 0.4 % (0.0-2.0); EOSINOPHILS # (AUTO) 0.1 K/uL (0.0-0.4); HEMATOCRIT 24.1 % (36-54); HEMOGLOBIN 7.9 g/dL (14.0-18.0); LYMPHOCYTES # (AUTO) 0.9 K/uL (1.0-5.5); LYMPHOCYTES % (AUTO) 7.4 % (20.5-51.5); MEAN CORPUSCULAR HEMOGLOBIN 32 pg (27-31); MEAN CORPUSCULAR HGB CONC 33 % (32-36); MEAN CORPUSCULAR VOLUME 98 fL (79.0-98.0); MONOCYTES # (AUTO) 1.1 K/uL (0.0-1.0); MONOCYTES % (AUTO) 8.4 % (1.7-9.3); NEUTROPHILS # (AUTO) 10.5 K/uL (1.8-7.7); NEUTROPHILS % (AUTO) 82.8 % (40.0-70.0); PLATELET COUNT (AUTO) 168 K/uL (130-430); RED BLOOD CELL COUNT(AUTO) 2.47 MIL/uL (4.2-6.2); RED CELL DISTRIBUTION WIDTH 17.3 % (9.0-15.0)
[2022-10-25 08:33] LABS: WHITE BLOOD COUNT (AUTO) 12.6 K/uL (4.8-10.8)
[2022-10-25] MEDS ORDERED: ACETAMINOPHEN 325 MG TABLET ONE (09:38)
[2022-10-25] MEDS ORDERED: ALBUMIN HUMAN 25% 100 ML IV ONE (09:39)
[2022-10-25] MEDS: METOPROLOL SUCCINATE 25 MG TAB.SR.24H (TOPROL XL) PO SCH (09:47)
[2022-10-25] MEDS: FOLIC ACID 1 MG TABLET PO SCH (09:47)
[2022-10-25] MEDS: RANOLAZINE 500 MG TAB.SR.12H PO SCH ×2 (09:48→21:58)
[2022-10-25] MEDS: PANTOPRAZOLE SODIUM 40 MG/VIAL (PROTONIX) IVP SCH ×2 (09:48→21:58)
[2022-10-25] MEDS: GABAPENTIN 100 MG CAPSULE PO SCH (09:49)
[2022-10-25 12:00] VITALS: BP_SYST 110
--- NOTE | 2022-10-25 12:00 | NUR ---
CM: faxed dc order and dc package to [facility], requesting snf set up. Per Wilton, the assigned cm will call back to discuss the discharge needs.
[2022-10-25] MEDS: metroNIDAZOLE 500 mg/NS 100 ML IV SCH ×2 (13:08→21:58)
[2022-10-25 16:00] VITALS: BP_SYST 119
--- NOTE | 2022-10-25 19:39 | NUR ---
Report given to car shifter RN for continuity of care. Patient stable.
--- NOTE | 2022-10-25 19:39 | NUR ---
Report received from night guard RN for continuity of care. Patient stable.
[2022-10-25 21:30] VITALS: BP_SYST 119
[2022-10-25] MEDS: ATORVASTATIN 20 MG TABLET PO SCH (21:58)
[2022-10-26 00:38] VITALS: BP_SYST 119
--- NOTE | 2022-10-26 01:04 | NUR ---
Shift Summary: patient is AAOX3-4. vitals are stable. patient and son updated on plan of care for the evening. patient ad son both state they have no questions or concerns at this time. will continue to monitor patient. call light within reach, bed set to low, locked, alarm on. isolation precaution implemented. q2h turns initiated.
[2022-10-26] MEDS: metroNIDAZOLE 500 mg/NS 100 ML IV SCH ×3 (05:04→23:11)
[2022-10-26] MEDS: NACL 0.9% 1,000 ML IV SCH (06:04)
[2022-10-26 07:39] LABS: BASOPHILS # (AUTO) 0.1 K/uL (0.0-0.2); BASOPHILS % (AUTO) 0.4 % (0.0-2.0); EOSINOPHILS # (AUTO) 0.1 K/uL (0.0-0.4); HEMATOCRIT 22.7 % (36-54); HEMOGLOBIN 7.5 g/dL (14.0-18.0); LYMPHOCYTES # (AUTO) 0.9 K/uL (1.0-5.5); LYMPHOCYTES % (AUTO) 6.5 % (20.5-51.5); MEAN CORPUSCULAR HEMOGLOBIN 32 pg (27-31); MEAN CORPUSCULAR HGB CONC 33 % (32-36); MEAN CORPUSCULAR VOLUME 97 fL (79.0-98.0); MONOCYTES # (AUTO) 1.1 K/uL (0.0-1.0); MONOCYTES % (AUTO) 8.3 % (1.7-9.3); NEUTROPHILS # (AUTO) 11.5 K/uL (1.8-7.7); NEUTROPHILS % (AUTO) 83.8 % (40.0-70.0); PLATELET COUNT (AUTO) 158 K/uL (130-430); RED BLOOD CELL COUNT(AUTO) 2.34 MIL/uL (4.2-6.2); RED CELL DISTRIBUTION WIDTH 17.8 % (9.0-15.0); WHITE BLOOD COUNT (AUTO) 13.7 K/uL (4.8-10.8)
[2022-10-26 07:52] LABS: ANION GAP 10 (5-15); CHLORIDE 109 mmol/L (98-107); CREATININE 2.29 mg/dL (0.55-1.30); GLUCOSE 128 mg/dL (70-99); UREA NITROGEN, BLOOD 40 mg/dL (8-21)
[2022-10-26 08:45] VITALS: BP_SYST 121
[2022-10-26] MEDS: PANTOPRAZOLE SODIUM 40 MG/VIAL (PROTONIX) IVP SCH ×2 (08:47→23:12)
[2022-10-26] MEDS: RANOLAZINE 500 MG TAB.SR.12H PO SCH ×2 (08:47→23:11)
[2022-10-26] MEDS: FOLIC ACID 1 MG TABLET PO SCH (08:48)
[2022-10-26] MEDS: GABAPENTIN 100 MG CAPSULE PO SCH (08:48)
[2022-10-26] MEDS: METOPROLOL SUCCINATE 25 MG TAB.SR.24H (TOPROL XL) PO SCH (08:48)
[2022-10-26 12:00] VITALS: BP_SYST 123
[2022-10-26 16:00] VITALS: BP_SYST 115
--- NOTE | 2022-10-26 20:02 | NUR ---
Report given to hematology technologist RN for continuity of care. Patient stable.
[2022-10-26] MEDS: ATORVASTATIN 20 MG TABLET PO SCH (23:11)
[2022-10-27] MEDS: NACL 0.9% 1,000 ML IV SCH (06:59)
--- NOTE | 2022-10-27 07:00 | NUR ---
Report received from assistant shift supervisor RN for continuity of care. Patient in stable condition.
[2022-10-27 08:00] VITALS: BP_SYST 120
[2022-10-27] MEDS: FOLIC ACID 1 MG TABLET PO SCH (10:07)
[2022-10-27] MEDS: metroNIDAZOLE 500 mg/NS 100 ML IV SCH ×3 (10:07→22:39)
[2022-10-27] MEDS: RANOLAZINE 500 MG TAB.SR.12H PO SCH ×2 (10:08→22:38)
[2022-10-27] MEDS: PANTOPRAZOLE SODIUM 40 MG/VIAL (PROTONIX) IVP SCH ×2 (10:08→22:38)
[2022-10-27] MEDS: GABAPENTIN 100 MG CAPSULE PO SCH (10:08)
[2022-10-27 10:09] LABS: BASOPHILS % (AUTO) 0.2 % (0.0-2.0); EOSINOPHILS % (AUTO) 0.3 % (0.0-4.0); HEMOGLOBIN 7.2 g/dL (14.0-18.0); LYMPHOCYTES % (AUTO) 6.5 % (20.5-51.5); MEAN CORPUSCULAR HEMOGLOBIN 32 pg (27-31); MEAN CORPUSCULAR HGB CONC 33 % (32-36); MEAN CORPUSCULAR VOLUME 98 fL (79.0-98.0); MONOCYTES # (AUTO) 1.5 K/uL (0.0-1.0); NEUTROPHILS # (AUTO) 12.4 K/uL (1.8-7.7); PLATELET COUNT (AUTO) 157 K/uL (130-430); RED BLOOD CELL COUNT(AUTO) 2.26 MIL/uL (4.2-6.2); RED CELL DISTRIBUTION WIDTH 17.7 % (9.0-15.0); WHITE BLOOD COUNT (AUTO) 14.9 K/uL (4.8-10.8)
[2022-10-27] MEDS: METOPROLOL SUCCINATE 25 MG TAB.SR.24H (TOPROL XL) PO SCH (10:09)
[2022-10-27 10:42] LABS: ANION GAP 11 (5-15); CALCIUM 7.1 mg/dL (8.4-11.0); CHLORIDE 109 mmol/L (98-107); CREATININE 2.62 mg/dL (0.55-1.30); GLUCOSE 127 mg/dL (70-99); UREA NITROGEN, BLOOD 45 mg/dL (8-21)
[2022-10-27 12:00] VITALS: BP_SYST 118
[2022-10-27 16:00] VITALS: BP_SYST 118
--- NOTE | 2022-10-27 19:30 | NUR ---
Report given to night shift supervisor RN for continuity of care. Patient in stable condition.
--- NOTE | 2022-10-27 20:11 | NUR ---
Paged Stan Newman s/w Cecy
[2022-10-27] MEDS: ATORVASTATIN 20 MG TABLET PO SCH (22:38)
[2022-10-28 07:23] LABS: BASOPHILS % (AUTO) 0.1 % (0.0-2.0); EOSINOPHILS # (AUTO) 0.1 K/uL (0.0-0.4); EOSINOPHILS % (AUTO) 0.4 % (0.0-4.0); HEMATOCRIT 22.4 % (36-54); HEMOGLOBIN 7.3 g/dL (14.0-18.0); LYMPHOCYTES # (AUTO) 0.9 K/uL (1.0-5.5); LYMPHOCYTES % (AUTO) 6.1 % (20.5-51.5); MEAN CORPUSCULAR HEMOGLOBIN 32 pg (27-31); MEAN CORPUSCULAR HGB CONC 32 % (32-36); MEAN CORPUSCULAR VOLUME 98 fL (79.0-98.0); MONOCYTES # (AUTO) 1.4 K/uL (0.0-1.0); MONOCYTES % (AUTO) 9.1 % (1.7-9.3); NEUTROPHILS # (AUTO) 12.7 K/uL (1.8-7.7); NEUTROPHILS % (AUTO) 84.3 % (40.0-70.0); PLATELET COUNT (AUTO) 157 K/uL (130-430); RED BLOOD CELL COUNT(AUTO) 2.28 MIL/uL (4.2-6.2); RED CELL DISTRIBUTION WIDTH 17.4 % (9.0-15.0); WHITE BLOOD COUNT (AUTO) 15.1 K/uL (4.8-10.8)
[2022-10-28 07:34] LABS: ANION GAP 12 (5-15); CALCIUM 7.1 mg/dL (8.4-11.0); CHLORIDE 109 mmol/L (98-107); CREATININE 3.09 mg/dL (0.55-1.30); GLUCOSE 147 mg/dL (70-99); UREA NITROGEN, BLOOD 58 mg/dL (8-21)
[2022-10-28] MEDS: NACL 0.9% 1,000 ML IV SCH (08:00)
[2022-10-28] MEDS: metroNIDAZOLE 500 mg/NS 100 ML IV SCH (08:01)
[2022-10-28 08:08] VITALS: BP_SYST 96
[2022-10-28] MEDS: PANTOPRAZOLE SODIUM 40 MG/VIAL (PROTONIX) IVP SCH ×2 (08:53→20:53)
[2022-10-28] MEDS: FOLIC ACID 1 MG TABLET PO SCH (08:53)
[2022-10-28] MEDS: RANOLAZINE 500 MG TAB.SR.12H PO SCH ×2 (08:54→20:53)
[2022-10-28] MEDS: METOPROLOL SUCCINATE 25 MG TAB.SR.24H (TOPROL XL) PO SCH (08:54)
[2022-10-28] MEDS: GABAPENTIN 100 MG CAPSULE PO SCH (08:54)
--- NOTE | 2022-10-28 10:29 | NUR ---
Labs still pending. Notified lab and they stated that it should be resulted within the hour.
--- NOTE | 2022-10-28 12:00 | NUR ---
Hgb 7.3; no blood to be given.
[2022-10-28 12:45] VITALS: BP_SYST 122
[2022-10-28 16:05] VITALS: BP_SYST 101
[2022-10-28] MEDS ORDERED: SODIUM BICARBONATE 650 MG TABLET PO ONE (17:45)
--- NOTE | 2022-10-28 19:51 | NUR ---
REPORT ENDORSED TO SVITLANA PAREKH
[2022-10-28 20:00] VITALS: BP_SYST 92
--- NOTE | 2022-10-28 20:00 | NUR ---
Opening note- Isolation was d/c'd today.Received pt in bed. pt awake and oriented x3. Present generalized edema- 4+ BLE and Rt arm.Noticed RT JI -IV Leaking. Flushed and changed central line dressing. F/c - with cloudy yellow urine.
[2022-10-28] MEDS: ATORVASTATIN 20 MG TABLET PO SCH (20:53)
[2022-10-28] MEDS: SODIUM BICARBONATE 650 MG TABLET PO SCH (20:54)
[2022-10-29 00:44] VITALS: BP_SYST 114
--- NOTE | 2022-10-29 05:00 | NUR ---
Noticed pt's RIJ TLC leaking again. Stopped IVF and started peripheral line # 22 on Lt forearm. Given bath and changed linen. Cleaned skin with soap and water. Changed foam dressing on coccyx/buttock- erythema. No S/SX of gi bleeding.
[2022-10-29] MEDS: NACL 0.9% 1,000 ML IV SCH ×3 (05:25→22:39)
[2022-10-29] MEDS: PANTOPRAZOLE SODIUM 40 MG/VIAL (PROTONIX) IVP SCH ×2 (08:28→22:38)
[2022-10-29] MEDS: GABAPENTIN 100 MG CAPSULE PO SCH (08:28)
[2022-10-29] MEDS: FOLIC ACID 1 MG TABLET PO SCH (08:28)
[2022-10-29] MEDS: RANOLAZINE 500 MG TAB.SR.12H PO SCH ×2 (08:28→22:38)
[2022-10-29] MEDS: SODIUM BICARBONATE 650 MG TABLET PO SCH ×2 (08:28→22:38)
[2022-10-29] MEDS: METOPROLOL SUCCINATE 25 MG TAB.SR.24H (TOPROL XL) PO SCH (08:31)
[2022-10-29 08:32] VITALS: BP_SYST 98
--- NOTE | 2022-10-29 16:45 | NUR ---
LEAKING NOTED FROM RAMOS CATHETER. 8 ML REMOVED AND PLACED BACK TO BALLOON. ADDITIONAL 2 ML PLACED. WILL EVALUATE LEAKAGE FROM RAMOS CATHETER.
[2022-10-29 17:28] VITALS: BP_SYST 101
--- NOTE | 2022-10-29 18:45 | NUR ---
CENTRAL LINE TO RIGHT NECK LEFT IN PLACE. ALL LUMENS FLUSHED. ASPIRATION OF BLOOD NOTED FROM RED AND BLUE LINE. BLOOD NOT ASPIRATED FROM WHITE LUMEN. NOTIFIED DR. ORDOÑEZ OF YELLOW PENILE DISCHARGE AND LEAKING FROM RAMOS CATHETER. ORDERS RECEIVED FOR UROLOGY TO EVALUATE.
[2022-10-29 20:00] VITALS: BP_SYST 111
--- NOTE | 2022-10-29 20:00 | NUR ---
patient refuse q2hrs turns, reposition with each bedpan placement and pericare, shift assessment complete, comfort maintained, encourage patient to change position, wound care consult placed for groin and coccyx excoriation/redness
[2022-10-29] MEDS: ATORVASTATIN 20 MG TABLET PO SCH (22:37)
[2022-10-29 23:51] VITALS: BP_SYST 104
[2022-10-30] VITALS (7 sets, daily range): BP systolic 95–141
--- NOTE | 2022-10-30 05:00 | NUR ---
total care with adl, bedpan prn, patient had two loose brown stools, henderson care and pericare completed, attempted to take pics, but no sim card in camera and skin barrier cream had been applied, sabino groin and penile edema noted, penis draining creamy color yellow/white drainage, henderson care given, chg wipes to periarea and henderson catheter, attempted to elevate scrotum and apply pads between scrotum and groin area to keep dry, sabino scrotal/groin, and coccyx redness and edema noted, 2 assist needed with repositioning
--- NOTE | 2022-10-30 07:55 | NUR ---
PHYSICAL THERAPY CO-SIGN The Physical Therapy Progress Notes documented by Car Lot Attendant have been reviewed. Reviewed/Co-Signed by: Taj Carlton Documentation Done by: AMANDA SCHWARTZ PTA Addendum: 10/30/22 at 0756 by Taj Carlton PT Amended: Links added.
--- NOTE | 2022-10-30 07:55 | NUR ---
PHYSICAL THERAPY CO-SIGN The Physical Therapy Progress Notes documented by Bottom Turning Lathe Turner have been reviewed. Reviewed/Co-Signed by: Taj Carlton Documentation Done by: AMANDA SCHWARTZ PTA Addendum: 10/30/22 at 0756 by Taj Carlton PT Amended: Links added.
--- NOTE | 2022-10-30 08:20 | NUR ---
BRUCE REQUESTED FROM PHARMACY
[2022-10-30] MEDS: SODIUM BICARBONATE 650 MG TABLET PO SCH ×2 (08:22→20:42)
[2022-10-30] MEDS: FOLIC ACID 1 MG TABLET PO SCH (08:24)
[2022-10-30] MEDS: ACETAMINOPHEN 325 MG TABLET PO PRN (08:24)
[2022-10-30] MEDS: GABAPENTIN 100 MG CAPSULE PO SCH (08:24)
[2022-10-30] MEDS: PANTOPRAZOLE SODIUM 40 MG/VIAL (PROTONIX) IVP SCH ×2 (08:24→20:43)
[2022-10-30] MEDS: NACL 0.9% 1,000 ML IV SCH (08:25)
[2022-10-30] MEDS: METOPROLOL SUCCINATE 25 MG TAB.SR.24H (TOPROL XL) PO SCH (08:25)
[2022-10-30] MEDS: RANOLAZINE 500 MG TAB.SR.12H PO SCH ×2 (10:10→20:42)
--- NOTE | 2022-10-30 12:04 | NUR ---
CONSULTATION PAGED/CALLED Reason for Consultation: [] YELLOW PENILE DISCHARGE; SCROTUM EDEMA Person Who was Notified: [] UBALDO Consulting Physician: [] Jeremy GAGE Pipe Threader Specialty: [] UROLOGIST Ordering Physician: [] DR ORDOÑEZ
--- NOTE | 2022-10-30 14:50 | NUR ---
URINE COLLECTED FROM RAMOS CATHETER TUBING. URINE SENT TO LAB.
--- NOTE | 2022-10-30 16:10 | NUR ---
1610 INQUIRED ABOUT LABS THAT WERE NOT DRAWN FOR PT. EFREN MATIAS, SAID THAT PT REFUSED LABS. UNAWARE OF PT REFUSAL. 1730 INFORMED BY EFREN MATIAS, THAT PT REFUSED AGAIN. SPOKE TO PT. HE DOES REFUSE. [address] ORDOÑEZ. INFORMED HIM THAT PT REFUSES LABS AND THAT CENTRAL LINE CATHETER MAY BE FURTHER OUT THAN THE PREVIOUS DAY. ORDERS TO BE PLACED PER .
[2022-10-30 17:05] LABS: BILIRUBIN,URINE NEGATIVE (NEGATIVE); BLOOD, URINE 2+ (NEGATIVE); CLARITY/URINE CLEAR (CLEAR); COLOR,URINE YELLOW (YELLOW); GLUCOSE,URINE NEGATIVE (NEGATIVE); KETONES,URINE NEGATIVE (NEGATIVE); LEUKOCYTE ESTERASE ,URINE 2+ (NEGATIVE); NITRITE, URINE NEGATIVE (NEGATIVE); PH,URINE 5.5 (5.0-8.0); PROTEIN URINE 1+ (NEGATIVE); UROBILINOGEN,URINE 0.2 (0.2-1.0)
[2022-10-30 17:26] LABS: BACTERIA,URINE RARE /HPF (None Seen); MUCUS,URINE 1+ /LPF (None Seen); WBC,URINE >100 /HPF (0-3); YEAST,URINE Moderate /HPF (None Seen)
[2022-10-30 17:27] LABS: FINE GRANULAR CASTS,URINE 0-10 /LPF (None Seen); HYALINE CASTS, URINE 0-10 /LPF (None Seen)
[2022-10-30] MEDS ORDERED: DOPamine PREMIX 250 ML IV PRN (19:00)
[2022-10-30] MEDS ORDERED: FUROSEMIDE 40 MG/4 ML VIAL IVP ONE (19:00)
--- NOTE | 2022-10-30 19:10 | NUR ---
ENDORSED ORDERS GIVEN AT 1900 TO PT'S PRIMARY RN.
--- NOTE | 2022-10-30 19:35 | NUR ---
received call from lab stating right IJ central line is coiled in neck, Dr Guzman paged to inform
--- NOTE | 2022-10-30 19:35 | NUR ---
Report received by Tiera SHANE, per nurse pt to receive renal dose dopamine, Sameera SHANEcharge rn nurse informed, nursing supervisor prep informed, paged Dr Guzman, H ordering physician for icu transfer orders
--- NOTE | 2022-10-30 20:00 | NUR ---
Sameera SHANEtravel pta nurse contacted pharmacy, per pharmacy Tamara, patient has to be transferred to ICU for renal dosing dopamine, ICU charge nurse Radha SHANE informed
--- NOTE | 2022-10-30 20:09 | NUR ---
PHARMACY CALLED: CALLED AND TALKED WITH KAY IN PHARMACY , PER HER , WE CANT START DOPAMINE ON THIS FLOOR SINCE ITS ON RENAL DOSING . I CALLED AND NOTIFIED THIS TO ICU CHARGE NURSE , WAITING FOR DR HUTCHINS TO CALL BACK .
--- NOTE | 2022-10-30 20:30 | NUR ---
no return call, Dr Guzman re-paged, informed that patient needs ICU orders for renal dose dopamine, also recieved report that Right IJ central line is coiled in neck from chest xray report, per Dr Guzman inform physician whom placed order, patient had central line placed in ER on admission, Charge nurse Sameera SHANE informed Dr Guzman at 2100 see notes
[2022-10-30] MEDS: ATORVASTATIN 20 MG TABLET PO SCH (20:42)
--- NOTE | 2022-10-30 20:55 | NUR ---
no distress noted, comfort maintained, vital signs stable see flowsheet, all personal belongings packed, no coughing noted, left arm iv patent, no s/s of infection, henderson catheter intact/patent, patient to be transfered to icu room 5
--- NOTE | 2022-10-30 21:03 | NUR ---
RN NOTES: PRIMARY RN IS DOESNT KNOW EXACT REASON FOR THE DOPAMINE DRIP AND I DIDNT GET ANY INFORMATION ABOUT IT DURING REPORT, AND DAUGHTER IS ASKING WHY HE IS GOING TO BE ON THE DRIP ,SO DR HUTCHINS CALLED , INFORMED MD THAT PTS DAUGHTER IS ASKING WHY WE ARE GIVING THE PT DOPAMINE DRIP , AND SHE IS ASKING FOR DETAILED ANSWER . TOLD ME " PTS KIDNEYS ARE GETTING WORSE AND HE HAS SWELLING AND THIS MEDICATION IS GOING TO HELP HIM " . TOLD ME PER X RAY PTS RIGHT IJ IS MALPOSITIONED ,AND MD RECOMMENDED TO NOTIFY PRIMARY MD . WILL CALL DAUGHTER TO UPDATE AGAIN AND PRIMARY RN MADE AWARE ABOUT THE NEW MD ORDER FOR IJ.
--- NOTE | 2022-10-30 21:05 | NUR ---
Report given to Greyson SHANE in ICU patient transferred to ICU via bed with all personal items, all 2100 medications given, patient had a bm, pericare given, daughter called by charge nurse Sameera SHANE
--- NOTE | 2022-10-30 21:05 | NUR ---
DAUGHTER CALLED: DAUGHTER NARDA CALLED AND NOTIFIED THAT PT WILL BE TRANSFERRING TO ICU TO RECEIVE DOPAMIN DRIP , SHE ASKED ME WHY SHE IS GETTING IT , INFORMED HER THAT PER DR HUTCHINS "PTS KIDNEY IS GETTING WORSE AND PT IS HAVING SWELLING " SO THIS MEDICATION IS GOING TO HELP HIM. SHE ASKED ME WHAT YOU MEAN BY WORSE ,INFORMED HER THAT PTS KIDNEY FUNCTION IS LITTLE HIGHER THAN BEFORE , SHE ASKED ME HOW WORSE IS THE PTS KIDNEY FUNCTION , INFORMED HER THAT IT HAS TO BE EXPLAINED BY THE DR , WHEN MD MAKE ROUNDS MD CAN CALL HER AND UPDATE PT CONDITION .SHE SAID THE DRS ARE BUSY ,I AM NOT GETTING ANY INFORMATION THATS WHY I AM ASKING YOU, INFORMED HER SINCE YOU ARE ASKING ABOUT THE DETAILED INFORMATION , IT SHOULD BE EXPLAINED BY THE DR .
--- NOTE | 2022-10-30 21:25 | NUR ---
ICU NOTIFIED : CALLED AND NOTIFIED ICU CHARGE NURSE THAT PTS R IJ IS MALPOSITIONED, DR HUTCHINS WANTS TO NOTIFY PRIMARY MD . I ASKED HER DO YOU WANT ME TO CALL DR MCKEON , ICU CHARGE NURSE TOLD ME SHE WILL TAKE CARE OF IT .
[2022-10-31] VITALS (23 sets, daily range): BP systolic 91–141
[2022-10-31] MEDS: NACL 0.9% 1,000 ML IV SCH (04:38)
[2022-10-31 06:45] LABS: BASOPHILS % (AUTO) 0.4 % (0.0-2.0); EOSINOPHILS # (AUTO) 0.1 K/uL (0.0-0.4); EOSINOPHILS % (AUTO) 0.7 % (0.0-4.0); HEMATOCRIT 22.8 % (36-54); HEMOGLOBIN 7.4 g/dL (14.0-18.0); LYMPHOCYTES # (AUTO) 0.6 K/uL (1.0-5.5); LYMPHOCYTES % (AUTO) 6.1 % (20.5-51.5); MEAN CORPUSCULAR HEMOGLOBIN 32 pg (27-31); MEAN CORPUSCULAR HGB CONC 33 % (32-36); MEAN CORPUSCULAR VOLUME 97 fL (79.0-98.0); MONOCYTES % (AUTO) 9.7 % (1.7-9.3); NEUTROPHILS # (AUTO) 8.9 K/uL (1.8-7.7); NEUTROPHILS % (AUTO) 83.1 % (40.0-70.0); PLATELET COUNT (AUTO) 205 K/uL (130-430); RED BLOOD CELL COUNT(AUTO) 2.35 MIL/uL (4.2-6.2); RED CELL DISTRIBUTION WIDTH 17.1 % (9.0-15.0); WHITE BLOOD COUNT (AUTO) 10.7 K/uL (4.8-10.8)
[2022-10-31 07:00] LABS: ALANINE AMINOTRANSFERASE 16 U/L (12-78); ALBUMIN 1.8 g/dL (3.4-4.8); ANION GAP 12 (5-15); ASPARTATE AMINOTRANSFERASE 26 U/L (10-37); CALCIUM 7.7 mg/dL (8.4-11.0); CHLORIDE 109 mmol/L (98-107); CREATININE 3.13 mg/dL (0.55-1.30); GLUCOSE 112 mg/dL (70-99); PHOSPHORUS 4.9 mg/dL (2.7-4.5); TOTAL BILIRUBIN 0.5 mg/dL (0.0-1.0); UREA NITROGEN, BLOOD 61 mg/dL (8-21)
--- NOTE | 2022-10-31 07:00 | NUR ---
open notes: received report from retail shift leader, pt was admitted on 10-16-22 for JULI, History of GI bleed, Anemia of CKD, COVID-positive, essential hypertension, Hyperlipidemia, Duodenal ulcers. Pt VS: BP109/45, HR 83, RR22, Pt on room air spo2 96%. Pt awake ox3.
--- NOTE | 2022-10-31 07:51 | NUR ---
PHYSICAL THERAPY CO-SIGN The Physical Therapy Progress Notes documented by Client Evaluator have been reviewed. Reviewed/Co-Signed by: Taj Carlton Documentation Done by: ALFONZO SANABRIA PTA Addendum: 10/31/22 at 0752 by Taj Carlton PT Amended: Links added.
--- NOTE | 2022-10-31 07:51 | NUR ---
HOLD PHYSICAL THERAPY TREATMENT DUE TO THE PATIENT'S TRANSFER TO THE ICU.
--- NOTE | 2022-10-31 09:00 | NUR ---
called pharmacy for missing Ranex.
[2022-10-31] MEDS: GABAPENTIN 100 MG CAPSULE PO SCH (09:08)
[2022-10-31] MEDS: PANTOPRAZOLE SODIUM 40 MG/VIAL (PROTONIX) IVP SCH ×2 (09:08→21:27)
[2022-10-31] MEDS: FOLIC ACID 1 MG TABLET PO SCH (09:08)
[2022-10-31] MEDS: METOPROLOL SUCCINATE 25 MG TAB.SR.24H (TOPROL XL) PO SCH (09:16)
[2022-10-31] MEDS: SODIUM BICARBONATE 650 MG TABLET PO SCH ×2 (09:26→21:28)
--- NOTE | 2022-10-31 10:00 | NUR ---
Pt son called asking about pt situation.
[2022-10-31] MEDS: RANOLAZINE 500 MG TAB.SR.12H PO SCH ×2 (10:25→21:28)
[2022-10-31] MEDS ORDERED: MENTHOL/ZINC OXIDE 113 GM OINT. TP ONE (14:00)
[2022-10-31] MEDS ORDERED: FUROSEMIDE 40 MG/4 ML VIAL IVP ONE ×2 (14:30→15:15)
--- NOTE | 2022-10-31 18:20 | NUR ---
RN NOTES PATIENT SEEN AND EXAMINED BY DR. HUTCHINS, WITH ORDERS.
[2022-10-31] MEDS: ATORVASTATIN 20 MG TABLET PO SCH (21:28)
[2022-11-01] VITALS (16 sets, daily range): BP systolic 89–118
[2022-11-01 06:27] LABS: BASOPHILS % (AUTO) 0.3 % (0.0-2.0); EOSINOPHILS # (AUTO) 0.1 K/uL (0.0-0.4); EOSINOPHILS % (AUTO) 0.9 % (0.0-4.0); HEMATOCRIT 23.1 % (36-54); HEMOGLOBIN 7.5 g/dL (14.0-18.0); LYMPHOCYTES # (AUTO) 0.8 K/uL (1.0-5.5); LYMPHOCYTES % (AUTO) 6.9 % (20.5-51.5); MEAN CORPUSCULAR HEMOGLOBIN 31 pg (27-31); MEAN CORPUSCULAR HGB CONC 32 % (32-36); MEAN CORPUSCULAR VOLUME 97 fL (79.0-98.0); MONOCYTES # (AUTO) 1.1 K/uL (0.0-1.0); MONOCYTES % (AUTO) 10.3 % (1.7-9.3); NEUTROPHILS % (AUTO) 81.6 % (40.0-70.0); PLATELET COUNT (AUTO) 233 K/uL (130-430); RED BLOOD CELL COUNT(AUTO) 2.39 MIL/uL (4.2-6.2); RED CELL DISTRIBUTION WIDTH 17.4 % (9.0-15.0); WHITE BLOOD COUNT (AUTO) 11.1 K/uL (4.8-10.8)
[2022-11-01 06:42] LABS: PROTHROMBIN TIME 10.6 SECS (9.5-12.5)
[2022-11-01 06:56] LABS: ALANINE AMINOTRANSFERASE 19 U/L (12-78); ALBUMIN 1.9 g/dL (3.4-4.8); ANION GAP 12 (5-15); ASPARTATE AMINOTRANSFERASE 28 U/L (10-37); CALCIUM 7.8 mg/dL (8.4-11.0); CHLORIDE 110 mmol/L (98-107); CREATININE 3.23 mg/dL (0.55-1.30); GLUCOSE 131 mg/dL (70-99); TOTAL BILIRUBIN 0.3 mg/dL (0.0-1.0); UREA NITROGEN, BLOOD 61 mg/dL (8-21)
--- NOTE | 2022-11-01 08:00 | NUR ---
SOREN DEL TORO RN IS IN CHARGE OF THIS PT-PT IS ALERT, ORTIENTED TO SELF, REORIENTED TO TIME AND PLACE-FOLLOWS COMMANDS, FEEDS HIMSELF AND ON ROOM AIR, BUT PT IS ON DOPAMINE DRIP FOR RENAL PERFUSION/BP OTHER VS STABLE/PT IN ZERO DISTRESS, LEGS AND SCROTUM SHOW 4+ EDEMA BUT PT DENIES PAIN IN LEGS OR SCROTUM/PT IN ZERO APPARENT DISTRESS//MW
[2022-11-01] MEDS: SODIUM BICARBONATE 650 MG TABLET PO SCH ×2 (09:45→21:04)
[2022-11-01] MEDS: RANOLAZINE 500 MG TAB.SR.12H PO SCH ×2 (09:45→21:04)
[2022-11-01] MEDS: FOLIC ACID 1 MG TABLET PO SCH (09:45)
[2022-11-01] MEDS: GABAPENTIN 100 MG CAPSULE PO SCH (09:45)
[2022-11-01] MEDS: PANTOPRAZOLE SODIUM 40 MG/VIAL (PROTONIX) IVP SCH ×2 (09:45→21:03)
[2022-11-01] MEDS: METOPROLOL SUCCINATE 25 MG TAB.SR.24H (TOPROL XL) PO SCH (09:45)
[2022-11-01] MEDS: MENTHOL/ZINC OXIDE 113 GM OINT. TP SCH (09:47)
--- NOTE | 2022-11-01 12:00 | NUR ---
PER PT NEPHRO PT MAY NEED DIALYSIS, WILL DISCUSS WITH PT SON OR DAUGHTER WHEN HE COMES IN/AWAIT //ANAND
--- NOTE | 2022-11-01 15:45 | NUR ---
WOUND EVALUATION: Late note for 11/01/2022 at 1545 secondary to patient care. Wound Consult received from Dr. Diaz. Thank you, Dr. Diaz, for the consult. Patient received in a [employer] InTouch Bed with an Isoflex KIMI mattress with low air loss therapy initiated, awake, confused. Patient is unable to turn independently. Gaston Score is a 13. Past Medical History: Hypertension Cognitive Impairment, Dementia. Admitted with Altered Mental Status and Hypotension. Recent Labs: WBC 11.1, RBC 2.39, hemoglobin 7.5, hematocrit 23.1, chloride 110, BUN 61, creatinine 3.23, glucose 131, STP 5.4, albumin 1.9. Intrinsic factors that delay wound healing: Severe Hypoalbuminemia, Hyperglycemia. Extrinsic factors that delay wound healing: Decreased mobility, incontinence. Microbiology: Blood culture results x2 negative. MRSA screen results negative. Urine culture results positive for yeast. Per note by Dr. Stan Bajwa: CT scan abdomen pelvis suggested: 1. Early acute proximal sigmoid diverticulitis. No sign of microperforation or pericolonic abscess. Finding could explain patient's gastric intestinal bleeding. Recommend clinical correlation. 2. Normal appendix. 3. Cholelithiasis. 4. Prostatectomy (with pelvic adenectomy). 5. IVC filter in place. 6. Urinary bladder wall thickening, likely from prior chronic bladder outlet obstruction. 7. Atherosclerosis, including three-vessel coronary artery disease. 8. 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 Finding is nonspecific and of doubtful clinical significance at this time. Consider nonemergent follow-up echocardiogram for further evaluation. 9. Old fracture of left 7th rib. 10. Osteopenia. 11. Possible acute/subacute chronic fracture of anteroinferior L1 vertebral body. Query back pain at this level. Zosyn IV was started. SARS-CoV-2 antigen came positive. ID consultation was called for further evaluation management. Skin assessment: 1. Right Buttock: IAD with MASD. Site has opened area with 100% pink tissue. No odor, no drainage. Periwound intact. Site measures 5.0 cm x 2.7 cm. 2. Left Sacral area: IAD with MASD. Site has opened area with 100% pink tissue. No odor, no drainage. Periwound intact. Site measures 1.0 cm x 1.5 cm. Recommend: Cleanse sites with normal saline. Apply Calmoseptine cream to open area and kathryn-wound. Apply hydrogel to any open area not covered by Calmoseptine cream. Cover with foam dressing. Perform site care daily, and as needed for dressing soiling or dislodgement. 3. Perineal area: IAD with erythema and fungal infection. 4. Scrotal area: IAD with erythema and fungal infection. Recommend: Cleanse involved areas with mild soap and water. Gently pat dry. Place Inter-Dry AG cloth underneath buttocks/perineal area and underneath scrotum. Apply antifungal powder to reddened areas, dust off excess antifungal powder. Pull Inter-Dry AG cloth up through inguinal areas and left scrotum off of bed. Perform site care twice daily and as needed for soiling. Change Inter-Dry AG cloth every 5 days and as needed for cloth soiling. Also recommend: Reposition patient side to side only every 2 hours with pillow support and off-load pressure areas with pillows for pressure re-distribution. Offload, elevate and float bilateral heels with 1 pillow lengthwise under each extremity at all times. Perform skin care and monitor skin integrity Q shift. Use Calmoseptine cream on buttocks and other moisture susceptible areas QID and as needed for soiling. Maintain patient on a low air-loss mattress.
--- NOTE | 2022-11-01 18:58 | NUR ---
PT WAS ASKED IF HE IS HUNGRY, PT STATES STILL VERY SLEEPY-LEFT TRAY IN THE ROOM FOR LATERW//ALSO GOT PT STRAWBERRY PROTEIN SHAKE AND JUICE//MW
[2022-11-01] MEDS: ATORVASTATIN 20 MG TABLET PO SCH (21:03)
[2022-11-01] MEDS: NYSTATIN 15 GM TOPICAL POWDER TP SCH (21:04)
[2022-11-02 00:57] VITALS: BP_SYST 108
[2022-11-02 08:00] VITALS: BP_SYST 129
[2022-11-02] MEDS: MENTHOL/ZINC OXIDE 113 GM OINT. TP SCH (09:00)
[2022-11-02] MEDS: NYSTATIN 15 GM TOPICAL POWDER TP SCH ×2 (09:00→20:55)
[2022-11-02] MEDS: GABAPENTIN 100 MG CAPSULE PO SCH (09:32)
[2022-11-02] MEDS: METOPROLOL SUCCINATE 25 MG TAB.SR.24H (TOPROL XL) PO SCH (09:32)
[2022-11-02] MEDS: SODIUM BICARBONATE 650 MG TABLET PO SCH ×2 (09:32→20:55)
[2022-11-02] MEDS: RANOLAZINE 500 MG TAB.SR.12H PO SCH ×2 (09:32→20:55)
[2022-11-02] MEDS: FOLIC ACID 1 MG TABLET PO SCH (09:32)
[2022-11-02] MEDS: PANTOPRAZOLE SODIUM 40 MG/VIAL (PROTONIX) IVP SCH ×2 (09:33→20:04)
[2022-11-02 11:33] VITALS: BP_SYST 116
--- NOTE | 2022-11-02 15:00 | NUR ---
URINE COLLECTED THROUGH RAMOS AND SENT TO THE LAB
[2022-11-02 16:21] VITALS: BP_SYST 113
[2022-11-02 19:00] VITALS: BP_SYST 112
--- NOTE | 2022-11-02 19:20 | NUR ---
OPENING NOTE PT IS SEMI FOWLERS IN BED WITH EYES OPEN. NO APPARENT SIGNS OF DISTRESS NOTED AT THIS TIME. BED IS IN LOWEST POSITION WITH FALL AND SAFETY PRECAUTIONS IN PLACE. PT EDUCATED ON HOW TO USE CALL LIGHT. ALL NEEDS MET AT THIS TIME.
[2022-11-02 20:00] VITALS: BP_SYST 112
[2022-11-02] MEDS: ATORVASTATIN 20 MG TABLET PO SCH (20:55)
--- NOTE | 2022-11-02 23:15 | NUR ---
ROUNDS PT LYING IN BED WITH EYES CLOSED. BED IN LOWEST POSITION WITH FALL AND SAFETY PRECAUTIONS IN PLACE. CALL LIGHT WITHIN REACH.
[2022-11-03 01:58] VITALS: BP_SYST 118
--- NOTE | 2022-11-03 04:21 | NUR ---
ROUNDS PT LYING IN BED WITH EYES CLOSED. BED IN LOWEST POSITION WITH FALL AND SAFETY PRECAUTIONS IN PLACE. CALL LIGHT WITHIN REACH.
--- NOTE | 2022-11-03 06:42 | NUR ---
PT STATING HE IS READY TO PT SAID " IS NEAR", WHEN NURSE QUESTIONED HIM MORE ABOUT HIM END OF LIFE WISHES HE DOES NOT WANT TO BE RESUSCITATED. THE PT STATED HE IS IN PAIN AND DOES NOT WANT TO BE BROUGHT BACK. PT DOES NOT APPEAR TO BE SUICIDAL
--- NOTE | 2022-11-03 07:25 | NUR ---
opening note received sbar from night RN. Patient in bed, respirations even,non labored, bed in low and locked position, call light within reach, bed alarm on
--- NOTE | 2022-11-03 07:29 | NUR ---
OPENING NOTE PT IS SEMI FOWLERS IN BED. NO APPARENT DISTRESS NOTED AT THIS TIME. BED IN LOWEST POSITION WITH FALL AND SAFETY PRECAUTIONS IN PLACE. CALL LIGHT WITHIN REACH.
[2022-11-03 08:00] VITALS: BP_SYST 118
[2022-11-03] MEDS: PANTOPRAZOLE SODIUM 40 MG/VIAL (PROTONIX) IVP SCH ×2 (08:52→21:24)
[2022-11-03] MEDS: GABAPENTIN 100 MG CAPSULE PO SCH (08:52)
[2022-11-03] MEDS: SODIUM BICARBONATE 650 MG TABLET PO SCH ×2 (08:53→21:23)
[2022-11-03] MEDS: METOPROLOL SUCCINATE 25 MG TAB.SR.24H (TOPROL XL) PO SCH (08:53)
[2022-11-03] MEDS: RANOLAZINE 500 MG TAB.SR.12H PO SCH ×2 (08:53→21:23)
[2022-11-03] MEDS: FOLIC ACID 1 MG TABLET PO SCH (09:00)
[2022-11-03] MEDS: MENTHOL/ZINC OXIDE 113 GM OINT. TP SCH (10:51)
[2022-11-03] MEDS: NYSTATIN 15 GM TOPICAL POWDER TP SCH ×2 (10:53→21:24)
--- NOTE | 2022-11-03 11:47 | NUR ---
NURSE NOTE PATIENT IN BED, RESPIRATIONS EVEN, NON LABORED, BED IN LOW AND LOCKED POSITION, CALL LIGHT WITHIN REACH, BED ALARM ON
[2022-11-03 12:00] VITALS: BP_SYST 102
--- NOTE | 2022-11-03 12:49 | NUR ---
MD Dr Diaz bedside examining patient, new orders received
[2022-11-03] MEDS ORDERED: COMMUNICATION ORDER XX ONE (13:00)
[2022-11-03] MEDS ORDERED: ENOXAPARIN SODIUM 30 MG/0.3 ML SYRINGE SUBCUT ONE (13:15)
[2022-11-03 16:00] VITALS: BP_SYST 122
--- NOTE | 2022-11-03 17:03 | NUR ---
BM PATIENT INCONTINENT OF BOWEL, PROVIDED KRISTIN CARE, CHANGED LINENS, REPOSITIONED PATIENT WITH PILLOW SUPPORT, PATIENT DENIES ANY PAIN OR DISCOMFORT
--- NOTE | 2022-11-03 18:03 | NUR ---
MD DR HUTCHINS BEDSIDE EXAMINING PATIENT, NEW ORDERS RECEIVED
[2022-11-03] MEDS: 0.45% NACL 1,000 ML IV SCH (18:44)
--- NOTE | 2022-11-03 19:15 | NUR ---
OPENING NOTES Patient resting in bed - no s/s pain or distress noted. Respirations even and unlabored - head of bed elevated. IV site patent - no s/s redness, infection, or infiltration. Bed locked and in lowest position. Call light within reach - bed alarm on.
--- NOTE | 2022-11-03 19:22 | NUR ---
CLOSING NOTE PROVIDED SBAR TO NIGHT RN. PATIENT IN BED, RESPIRATIONS EVEN, NON LABORED, BED IN LOW AND LOCKED POSITION, CALL LIGHT WITHIN REACH, BED ALARM ON. IVF'S RUNNING ORDERED. ENDORSED CARE TO NIGHT RN
[2022-11-03] MEDS: ATORVASTATIN 20 MG TABLET PO SCH (21:23)
[2022-11-04 01:07] VITALS: BP_SYST 119
--- NOTE | 2022-11-04 06:53 | NUR ---
CLOSING NOTES Patient resting in bed - no s/s pain or distress noted. Respirations even and unlabored - head of bed elevated. IV site patent - no s/s redness, infection, or infiltration. Bed locked and in lowest position. Call light within reach - bed alarm on. patient cleaned linens changed throughout shift by RAÚL Joshi and SVITLANA Gold
[2022-11-04] MEDS: NYSTATIN 15 GM TOPICAL POWDER TP SCH ×2 (09:00→21:00)
[2022-11-04] MEDS: MENTHOL/ZINC OXIDE 113 GM OINT. TP SCH (09:00)
[2022-11-04 09:53] VITALS: BP_SYST 114
[2022-11-04] MEDS: RANOLAZINE 500 MG TAB.SR.12H PO SCH ×2 (09:56→21:28)
[2022-11-04] MEDS: GABAPENTIN 100 MG CAPSULE PO SCH (09:56)
[2022-11-04] MEDS: PANTOPRAZOLE SODIUM 40 MG/VIAL (PROTONIX) IVP SCH ×2 (09:56→21:28)
[2022-11-04] MEDS: SODIUM BICARBONATE 650 MG TABLET PO SCH ×2 (11:19→21:28)
[2022-11-04] MEDS: METOPROLOL SUCCINATE 25 MG TAB.SR.24H (TOPROL XL) PO SCH (11:19)
[2022-11-04] MEDS: FOLIC ACID 1 MG TABLET PO SCH (11:19)
[2022-11-04 12:12] VITALS: BP_SYST 110
--- NOTE | 2022-11-04 13:18 | NUR ---
Nutrition F/U RD reviewed pts current EMR including diet hx, physician notes, nursing notes, pertinent labs/meds/procedures, care trends and care activity. Short note d/t high workload. Admitting Diagnosis: GI bleed Reviewed Pertinent Medical/Surgical Hx: Medical Record Medical History Comment: Per EMR review, PMH unknown d/t pt's cognitive impairment. Pt admitted for AMS, hypotension. Dx of sepsis d/t pneumonia, JULI, possible GI bleed and sigmoid diverticulitis, acute blood loss anemia. EGD results 10/18: 2 duodenal ulcers w/o active bleeding. SARS-CoV-2 Ag (Rapid): Positive on 10/16, Negative on 10/[address] rounded to pt room and s/w pt. He was eating his lunch but he stated he couldnt eat anymore; RD witnessed only about 40% eaten. Pt has been eating poorly ( avg of 42% x 10 meals). He told RD some foods that he could try and eat; RD entered in computrition. Pt denies N/V/C but has been experiencing diarrhea. IBW used to determine estimated nutritional needs d/t pt may be unable to meet goal of >75% intake based on CBW. Current Diet Order/Nutrition Support: GI Soft x 16 days Pertinent Medications: reviewed Pertinent Labs (11/01): Na 143 WNL, BG 131H, BUN 61H, CRE 3.23H, WBC 11.1H, H/H 7.5L/23.1L Anthropotmetrics: Height: 6'0 Weight: 199#/90.3kg Body Mass Index: 26.99 kg/m2 %IBW: 120 [place]/Adjusted Body Weight: 178#/81kg IBW. Recent Weight Change: Unable to verify Weight Status: Overweight Last BM: Nov 04, 2022 Current % PO Poor (avg 42% x 10 meals) Estimated Energy Expenditure (kcals/day) 6723-4840 (30-35kcal/kg IBW d/t sepsis) Estimated Protein Required (g/day) 122-162 (1.5-2kcal/kg IBW d/t sepsis) Estimated Fluid Required (l/day) 2-2.3 (25-30kcal/kg IBW d/t GERIAT maintenance) Problem/Etiology/Signs/Symptoms Increased energy needs R/T metabolic demands AEB estimated nutritional needs for sepsis. (Ongoing) Expected Outcomes/Goals Monitor appetite and PO intakes w/ goal of meeting >75% estimated nutritional needs, labs trending WNL, normal GI function, and skin integrity/wt maintenance. Dietitian Recommendations * Continue GI Soft diet * Consider Nepro BID- vanilla (provides 850 kcal and 38g protein) * Consider Luis BID (supplements yield 180kcal/day, 5g protein day) * Consider banatrol BID d/t diarrhea * If/when medically appropriate, consider Regular diet High Risk: F/U in 2-3days GS, MPH, RD
--- NOTE | 2022-11-04 13:21 | NUR ---
Dietitian Recommendations * Continue GI Soft diet * Consider Nepro BID- vanilla (provides 850 kcal and 38g protein) * Consider Luis BID (supplements yield 180kcal/day, 5g protein day) * Consider banatrol BID d/t diarrhea * If/when medically appropriate, consider Regular diet GS, MPH, RD Please refer to Nutrition F/U for further details
[2022-11-04] MEDS: ENOXAPARIN SODIUM 30 MG/0.3 ML SYRINGE SUBCUT SCH (13:33)
[2022-11-04] MEDS: 0.45% NACL 1,000 ML IV SCH (13:33)
[2022-11-04 17:39] VITALS: BP_SYST 141
--- NOTE | 2022-11-04 19:55 | NUR ---
RECEIVED PT LYING IN BED, NO DISTRESS NOTED, DENIES PAIN. AAOX2, O2 SAT 97% RA. DIMINISHED LUNG SOUNDS. IV TO RT HAND SITE CDI. PALPABLE PULSES TO BUE, UNABLE TO PALPATE BLE D/T PITTING EDEMA. SCROTAL EDEMA NOTED. PT HAD A LARGE SOFT BROWN BM. F/C WITH SECURE DEVICE DRAINING YELLOW URINE.
[2022-11-04 20:15] VITALS: BP_SYST 128
[2022-11-04] MEDS: ATORVASTATIN 20 MG TABLET PO SCH (21:28)
[2022-11-05 00:51] VITALS: BP_SYST 122
[2022-11-05 07:51] VITALS: BP_SYST 101
[2022-11-05] MEDS: RANOLAZINE 500 MG TAB.SR.12H PO SCH ×2 (09:18→20:11)
[2022-11-05] MEDS: GABAPENTIN 100 MG CAPSULE PO SCH (09:18)
[2022-11-05] MEDS: FOLIC ACID 1 MG TABLET PO SCH (09:18)
[2022-11-05] MEDS: SODIUM BICARBONATE 650 MG TABLET PO SCH ×2 (09:18→20:11)
[2022-11-05] MEDS: METOPROLOL SUCCINATE 25 MG TAB.SR.24H (TOPROL XL) PO SCH (09:19)
[2022-11-05] MEDS: PANTOPRAZOLE SODIUM 40 MG/VIAL (PROTONIX) IVP SCH ×2 (09:20→20:11)
[2022-11-05] MEDS: 0.45% NACL 1,000 ML IV SCH (11:07)
[2022-11-05] MEDS: NYSTATIN 15 GM TOPICAL POWDER TP SCH ×2 (11:42→20:12)
[2022-11-05] MEDS: MENTHOL/ZINC OXIDE 113 GM OINT. TP SCH (11:44)
[2022-11-05 12:00] VITALS: BP_SYST 103
[2022-11-05] MEDS: ENOXAPARIN SODIUM 30 MG/0.3 ML SYRINGE SUBCUT SCH (13:31)
--- NOTE | 2022-11-05 13:50 | NUR ---
EDITORIAL ASSISTANT ARLYN Rose responded to a Social Service Consult request for "End of Life Care/Decisions". ACSCarl Rose met with patient and son Yang Neal at bedside. ACSW completed introductions, provided business card, reason for referral and patient was open to contact and provided permission to speak in front of his son. Patient expressed having a "bad day" on 11/03 when he expressed to the nurse that he wanted to . At this time he does not wish to pursue hospice nor change code status. Yang also shared the patient resides with his daughter Pennie Neal in [place], and has a caregiver that "drops in a few times a week" that supports with home cleaning, cooking etc" to both patient and his daughter. Yang also shared if they do decide to consider hospice, they will follow up with [facility]. Patient and son denied further need for Social Service assistance at this time. Fry Cook will continue to be available as needed
[2022-11-05 15:50] VITALS: BP_SYST 100
[2022-11-05 20:07] VITALS: BP_SYST 112
[2022-11-05] MEDS: ATORVASTATIN 20 MG TABLET PO SCH (20:11)
[2022-11-06 00:14] VITALS: BP_SYST 106
[2022-11-06] MEDS: 0.45% NACL 1,000 ML IV SCH (06:17)
--- NOTE | 2022-11-06 07:28 | NUR ---
pt refused am labs
[2022-11-06 08:31] VITALS: BP_SYST 122
[2022-11-06] MEDS: RANOLAZINE 500 MG TAB.SR.12H PO SCH ×2 (10:14→20:30)
[2022-11-06] MEDS: SODIUM BICARBONATE 650 MG TABLET PO SCH ×2 (10:14→20:30)
[2022-11-06] MEDS: GABAPENTIN 100 MG CAPSULE PO SCH (10:14)
[2022-11-06] MEDS: METOPROLOL SUCCINATE 25 MG TAB.SR.24H (TOPROL XL) PO SCH (10:15)
[2022-11-06] MEDS: FOLIC ACID 1 MG TABLET PO SCH (10:15)
[2022-11-06] MEDS: PANTOPRAZOLE SODIUM 40 MG/VIAL (PROTONIX) IVP SCH ×2 (10:16→20:30)
[2022-11-06] MEDS: NYSTATIN 15 GM TOPICAL POWDER TP SCH ×2 (10:21→20:30)
[2022-11-06] MEDS: MENTHOL/ZINC OXIDE 113 GM OINT. TP SCH (10:22)
[2022-11-06 11:35] VITALS: BP_SYST 116
[2022-11-06] MEDS: ENOXAPARIN SODIUM 30 MG/0.3 ML SYRINGE SUBCUT SCH (13:28)
[2022-11-06 15:50] VITALS: BP_SYST 130
[2022-11-06] MEDS ORDERED: FUROSEMIDE 40 MG/4 ML VIAL IVP ONE (16:45)
[2022-11-06 20:00] VITALS: BP_SYST 125
[2022-11-06] MEDS: ATORVASTATIN 20 MG TABLET PO SCH (20:30)
[2022-11-07 00:21] VITALS: BP_SYST 114
--- NOTE | 2022-11-07 06:52 | NUR ---
pt refused am labs
--- NOTE | 2022-11-07 07:22 | NUR ---
PHYSICAL THERAPY CO-SIGN The Physical Therapy Progress Notes documented by Core Machine Operator have been reviewed. Reviewed/Co-Signed by: Taj Carlton Documentation Done by: ALFONZO SANABRIA PTA Addendum: 11/07/22 at 0722 by Taj Carlton PT Amended: Links added.
[2022-11-07 09:00] VITALS: BP_SYST 118
[2022-11-07] MEDS: PANTOPRAZOLE SODIUM 40 MG/VIAL (PROTONIX) IVP SCH ×2 (10:45→21:35)
[2022-11-07] MEDS: FOLIC ACID 1 MG TABLET PO SCH (10:46)
[2022-11-07] MEDS: RANOLAZINE 500 MG TAB.SR.12H PO SCH ×2 (10:46→21:35)
[2022-11-07] MEDS: GABAPENTIN 100 MG CAPSULE PO SCH (10:47)
[2022-11-07] MEDS: SODIUM BICARBONATE 650 MG TABLET PO SCH ×2 (10:47→21:35)
[2022-11-07] MEDS: METOPROLOL SUCCINATE 25 MG TAB.SR.24H (TOPROL XL) PO SCH (10:48)
[2022-11-07] MEDS: MENTHOL/ZINC OXIDE 113 GM OINT. TP SCH (10:50)
[2022-11-07] MEDS: NYSTATIN 15 GM TOPICAL POWDER TP SCH ×2 (10:50→21:40)
[2022-11-07 12:40] VITALS: BP_SYST 114
[2022-11-07] MEDS: ENOXAPARIN SODIUM 30 MG/0.3 ML SYRINGE SUBCUT SCH (13:39)
[2022-11-07] MEDS: ACETAMINOPHEN 325 MG TABLET PO PRN (13:40)
[2022-11-07] MEDS ORDERED: FUROSEMIDE 40 MG/4 ML VIAL IVP ONE (14:30)
--- NOTE | 2022-11-07 14:30 | NUR ---
Nutrition F/U RD reviewed pts current EMR including diet hx, physician notes, nursing notes, pertinent labs/meds/procedures, care trends and care activity. Short note d/t high workload. Admitting Diagnosis: GI bleed Reviewed Pertinent Medical/Surgical Hx: Medical Record, Patient Medical History Comment: Per EMR review, PMH unknown d/t pt's cognitive impairment. Pt admitted for AMS, hypotension. Dx of sepsis d/t pneumonia, JULI, possible GI bleed and sigmoid diverticulitis, acute blood loss anemia. EGD results 10/18: 2 duodenal ulcers w/o active bleeding. SARS-CoV-2 Ag (Rapid): Positive on 10/16 & 11/04 Subjective Information: RD visited pt at bedside this afternoon. Pt was very lethargic and could barely respond to RD verbal interview questions. RD could not locate pt's primary RN when on [facility] unit -- no phone extension available for pt's RN either. Per EMR review, pt's PO intakes have been poor; abd is soft w/ active bowel sounds; LBM x3 11/06; Gaston score: 12 w/ erythema to anterior L thigh, buttock, and rectum. Pt is not meeting optimal nutritional needs and supplementation is warranted. Current Diet Order/Nutrition Support: GI Soft x19 days Pertinent Medications: lovenox, sodium bicarb, protonix IV, folic acid, lipitor Pertinent Labs: No new lab since 11/01: Na 143 WNL, BG 131 H, BUN 61 H, CRE 3.23 H, WBC 11.1 H, H/H 7.5L/23.1 L Height: 6'0 Weight: 199#/90.3kg Body Mass Index: 26.99 kg/m2 %IBW: 120 [place]/Adjusted Body Weight: 178#/81kg IBW. Recent Weight Change: Unable to verify Weight Status: Overweight Last BM: Nov 04, 2022 Current % PO: 34% average x7 last meal records Estimated Energy Expenditure (kcals/day) 2559-5180 (30-35kcal/kg IBW d/t sepsis) Estimated Protein Required (g/day) 122-162 (1.5-2kcal/kg IBW d/t sepsis) Estimated Fluid Required (l/day) 2-2.3 (25-30kcal/kg IBW d/t GERIAT maintenance) Problem/Etiology/Signs/Symptoms Increased energy needs R/T metabolic demands AEB estimated nutritional needs for sepsis. *Ongoing Expected Outcomes/Goals Monitor appetite and PO intakes w/ goal of meeting >75% estimated nutritional needs, labs trending WNL, normal GI function, and skin integrity/wt maintenance. Dietitian Recommendations * GI Soft diet, Nepro BID, Luis BID (supplements yield 1020 kcal/day, 43 gm protein/day) * Encourage increase PO intakes * Consider appetite stimulant High Risk: F/U in 2-3 days
--- NOTE | 2022-11-07 14:35 | NUR ---
Dietitian Recommendations * GI Soft diet, Nepro BID, Luis BID (supplements yield 1020 kcal/day, 43 gm protein/day) * Encourage increase PO intakes * Consider appetite stimulant LP, MS, RD Please refer to Nutrition F/U for details.
[2022-11-07 16:35] VITALS: BP_SYST 116
[2022-11-07 20:00] VITALS: BP_SYST 109
[2022-11-07] MEDS: ATORVASTATIN 20 MG TABLET PO SCH (21:38)
--- NOTE | 2022-11-08 07:19 | NUR ---
PHYSICAL THERAPY CO-SIGN The Physical Therapy Progress Notes documented by Philosophy Faculty have been reviewed. Reviewed/Co-Signed by: Taj Carlton Documentation Done by: ALFONZO SANABRIA PTA Addendum: 11/08/22 at 0720 by Taj Carlton PT Amended: Links added.
[2022-11-08 08:00] VITALS: BP_SYST 119
[2022-11-08] MEDS: FOLIC ACID 1 MG TABLET PO SCH (10:03)
[2022-11-08] MEDS: GABAPENTIN 100 MG CAPSULE PO SCH (10:03)
[2022-11-08] MEDS: SODIUM BICARBONATE 650 MG TABLET PO SCH ×2 (10:03→20:29)
[2022-11-08] MEDS: METOPROLOL SUCCINATE 25 MG TAB.SR.24H (TOPROL XL) PO SCH (10:03)
[2022-11-08] MEDS: PANTOPRAZOLE SODIUM 40 MG/VIAL (PROTONIX) IVP SCH ×2 (10:03→20:39)
[2022-11-08] MEDS: RANOLAZINE 500 MG TAB.SR.12H PO SCH ×2 (10:04→20:29)
[2022-11-08] MEDS: MENTHOL/ZINC OXIDE 113 GM OINT. TP SCH (10:04)
[2022-11-08] MEDS: NYSTATIN 15 GM TOPICAL POWDER TP SCH ×2 (10:05→20:33)
[2022-11-08 12:00] VITALS: BP_SYST 116
[2022-11-08] MEDS: ENOXAPARIN SODIUM 30 MG/0.3 ML SYRINGE SUBCUT SCH (16:17)
[2022-11-08 16:48] VITALS: BP_SYST 116
[2022-11-08] MEDS: ATORVASTATIN 20 MG TABLET PO SCH (20:29)
[2022-11-09 00:35] VITALS: BP_SYST 122
--- NOTE | 2022-11-09 08:00 | NUR ---
Initial notes Received patient sleeping in bed oriented x4. Respiration even and unlabored, no signs of distress/SOB. IV saline lock patent to right hand, no infiltration. Maintained precaution, bed in low position call light w/in reached , continue to monitor
--- NOTE | 2022-11-09 08:25 | NUR ---
Refused AM labs, educate the importance to prevent further complication, but patient still refused.
[2022-11-09 08:37] VITALS: BP_SYST 120
[2022-11-09] MEDS: SODIUM BICARBONATE 650 MG TABLET PO SCH ×2 (08:53→22:17)
[2022-11-09] MEDS: PANTOPRAZOLE SODIUM 40 MG/VIAL (PROTONIX) IVP SCH ×2 (08:53→22:17)
[2022-11-09] MEDS: FOLIC ACID 1 MG TABLET PO SCH (08:54)
[2022-11-09] MEDS: METOPROLOL SUCCINATE 25 MG TAB.SR.24H (TOPROL XL) PO SCH (08:54)
[2022-11-09] MEDS: GABAPENTIN 100 MG CAPSULE PO SCH (08:55)
[2022-11-09] MEDS: RANOLAZINE 500 MG TAB.SR.12H PO SCH ×2 (08:55→22:17)
[2022-11-09] MEDS: NYSTATIN 15 GM TOPICAL POWDER TP SCH ×2 (08:55→22:18)
[2022-11-09] MEDS: MENTHOL/ZINC OXIDE 113 GM OINT. TP SCH (08:56)
--- NOTE | 2022-11-09 10:45 | NUR ---
Family at bedside, questions answers.
--- NOTE | 2022-11-09 11:00 | NUR ---
Called laboratory fo blood draw, patient decided to have blood drawn, daughter and son at bed side
[2022-11-09 11:17] VITALS: BP_SYST 121
[2022-11-09] MEDS: ENOXAPARIN SODIUM 30 MG/0.3 ML SYRINGE SUBCUT SCH (12:29)
[2022-11-09 12:33] LABS: BASOPHILS # (AUTO) 0.1 K/uL (0.0-0.2); BASOPHILS % (AUTO) 0.4 % (0.0-2.0); EOSINOPHILS # (AUTO) 0.2 K/uL (0.0-0.4); EOSINOPHILS % (AUTO) 1.2 % (0.0-4.0); HEMATOCRIT 24.2 % (36-54); HEMOGLOBIN 7.8 g/dL (14.0-18.0); LYMPHOCYTES # (AUTO) 1.1 K/uL (1.0-5.5); LYMPHOCYTES % (AUTO) 7.3 % (20.5-51.5); MEAN CORPUSCULAR HEMOGLOBIN 32 pg (27-31); MEAN CORPUSCULAR HGB CONC 32 % (32-36); MEAN CORPUSCULAR VOLUME 98 fL (79.0-98.0); MONOCYTES # (AUTO) 1.5 K/uL (0.0-1.0); MONOCYTES % (AUTO) 10.5 % (1.7-9.3); NEUTROPHILS # (AUTO) 11.9 K/uL (1.8-7.7); NEUTROPHILS % (AUTO) 80.6 % (40.0-70.0); PLATELET COUNT (AUTO) 437 K/uL (130-430); RED BLOOD CELL COUNT(AUTO) 2.48 MIL/uL (4.2-6.2); RED CELL DISTRIBUTION WIDTH 18.1 % (9.0-15.0); WHITE BLOOD COUNT (AUTO) 14.7 K/uL (4.8-10.8)
[2022-11-09 12:45] LABS: ANION GAP 9 (5-15); CALCIUM 7.4 mg/dL (8.4-11.0); CHLORIDE 105 mmol/L (98-107); GLUCOSE 131 mg/dL (70-99); UREA NITROGEN, BLOOD 41 mg/dL (8-21)
--- NOTE | 2022-11-09 15:45 | NUR ---
Patient accidentally removed IV line, catheter intact.
[2022-11-09 16:59] VITALS: BP_SYST 119
[2022-11-09] MEDS ORDERED: FUROSEMIDE 40 MG TABLET PO ONE (18:30)
--- NOTE | 2022-11-09 18:32 | NUR ---
Closing Patient stable no signs of distress/SOB, new IV saline lock left arm, all safety secured, bed in low position, call light w/in reached, will endorse to oncoming nurse.
[2022-11-09 19:00] VITALS: BP_SYST 114
[2022-11-09 20:00] VITALS: BP_SYST 114
[2022-11-09] MEDS: ATORVASTATIN 20 MG TABLET PO SCH (22:17)
[2022-11-10 08:05] VITALS: BP_SYST 115
[2022-11-10] MEDS: FOLIC ACID 1 MG TABLET PO SCH (08:54)
[2022-11-10] MEDS: SODIUM BICARBONATE 650 MG TABLET PO SCH ×2 (08:54→20:46)
[2022-11-10] MEDS: RANOLAZINE 500 MG TAB.SR.12H PO SCH ×2 (08:54→20:46)
[2022-11-10] MEDS: GABAPENTIN 100 MG CAPSULE PO SCH (08:54)
[2022-11-10] MEDS: METOPROLOL SUCCINATE 25 MG TAB.SR.24H (TOPROL XL) PO SCH (08:55)
[2022-11-10] MEDS: PANTOPRAZOLE SODIUM 40 MG/VIAL (PROTONIX) IVP SCH ×2 (08:56→20:47)
[2022-11-10] MEDS: NYSTATIN 15 GM TOPICAL POWDER TP SCH ×2 (09:00→20:48)
[2022-11-10] MEDS: MENTHOL/ZINC OXIDE 113 GM OINT. TP SCH (09:01)
[2022-11-10 12:00] VITALS: BP_SYST 117
[2022-11-10] MEDS: ENOXAPARIN SODIUM 30 MG/0.3 ML SYRINGE SUBCUT SCH (12:51)
[2022-11-10 16:00] VITALS: BP_SYST 116
[2022-11-10] MEDS ORDERED: FUROSEMIDE 40 MG/4 ML VIAL IVP ONE (18:00)
--- NOTE | 2022-11-10 19:52 | NUR ---
RECEIVED PT LYING IN BED, NO DISTRESS NOTED, DENIES PAIN. AAOX3, O2 SAT 96% ON RA. LUNG SOUNDS DIMINISHED. IV TO LT WRIST SITE CDI. ECCHYMOSIS NOTED TO BUE. EDEMA NOTED TO SCROTUM AND BLE. ELEVATED LEGS ONTO PILLOWS. F/C DRAINING YELLOW URINE. NEEDS F/C SECURITY DEVICE.
[2022-11-10 20:00] VITALS: BP_SYST 119
[2022-11-10] MEDS: ATORVASTATIN 20 MG TABLET PO SCH (20:46)
[2022-11-11 00:37] VITALS: BP_SYST 113
[2022-11-11 08:00] VITALS: BP_SYST 105
--- NOTE | 2022-11-11 08:00 | NUR ---
Initial Notes Patient is Aox3. denies pain. NO SOB noted. Breathing is even and nonlabored, on room air. No ss of distress noted. Vital signs obtained, as documented. Patient is eating breakfast. f/c draining by gravity. Bed is locked, alarm on, and at lowest position. Call light within reach.
--- NOTE | 2022-11-11 08:01 | NUR ---
PHYSICAL THERAPY CO-SIGN The Physical Therapy Progress Notes documented by Evaluation Analyst have been reviewed. Reviewed/Co-Signed by: Taj Carlton Documentation Done by: ALFONZO SANABRIA PTA Addendum: 11/11/22 at 0801 by aTj Carlton PT Amended: Links added.
[2022-11-11] MEDS: SODIUM BICARBONATE 650 MG TABLET PO SCH ×2 (08:51→21:33)
[2022-11-11] MEDS: FOLIC ACID 1 MG TABLET PO SCH (08:52)
[2022-11-11] MEDS: RANOLAZINE 500 MG TAB.SR.12H PO SCH ×2 (08:52→21:33)
[2022-11-11] MEDS: METOPROLOL SUCCINATE 25 MG TAB.SR.24H (TOPROL XL) PO SCH (08:53)
[2022-11-11] MEDS: GABAPENTIN 100 MG CAPSULE PO SCH (08:53)
[2022-11-11] MEDS: NYSTATIN 15 GM TOPICAL POWDER TP SCH ×2 (08:54→21:33)
[2022-11-11] MEDS: MENTHOL/ZINC OXIDE 113 GM OINT. TP SCH (08:54)
[2022-11-11 08:55] VITALS: BP_SYST 110
--- NOTE | 2022-11-11 09:10 | NUR ---
notes Patient is resting, awake. No ss of distress noted. Breathing is even and nonlabored, RA. denies pain. Safety precautions in place and call light within reach.
[2022-11-11] MEDS: PANTOPRAZOLE SODIUM 40 MG/VIAL (PROTONIX) IVP SCH ×2 (09:49→21:33)
[2022-11-11 11:59] VITALS: BP_SYST 114
[2022-11-11] MEDS: ENOXAPARIN SODIUM 30 MG/0.3 ML SYRINGE SUBCUT SCH (13:00)
--- NOTE | 2022-11-11 14:56 | NUR ---
Notes Spoke to Dr. Diaz and Dr. Ruano. MDs made aware of DVT status to bilateral lower extremities. New order received, pharmacy to dose Lovenox Did not administer Lovenox 30 mg at 1300.
[2022-11-11] MEDS ORDERED: ENOXAPARIN SODIUM 100 MG/ML SYRINGE SUBCUT ONE (15:00)
[2022-11-11] MEDS ORDERED: *LOVENOX 1MG/KG Q24H/PHARMACY XX ONE (15:00)
--- NOTE | 2022-11-11 16:00 | NUR ---
Notes Patient is resting, eyes closed. No ss of distress noted. Breathing is even and nonlabored, on room air. No facial grimace noted. Bed locked, alarm on, and at lowest position. Call light within reach.
[2022-11-11 16:30] VITALS: BP_SYST 121
--- NOTE | 2022-11-11 18:40 | NUR ---
Closing Notes Patient is resting, eyes closed. Patient is in a comfortable position. No ss of distress noted. Breathing is even and nonlabored, on room air. No facial grimace noted. IV patent. F/c draining by gravity. Patient is stable. All needs met. Bed is locked, alarm on, and at lowest position. Call light within reach.
--- NOTE | 2022-11-11 19:35 | NUR ---
RECEIVED PT LYING IN BED, NO DISTRESS NOTED. DENIES PAIN. AAOX3. 92 SAT 96% ON RA. IV TO LT WRIST SITE CDI. PT HAVING DINNER AT THIS TIME.
[2022-11-11 20:00] VITALS: BP_SYST 116
[2022-11-11] MEDS: ATORVASTATIN 20 MG TABLET PO SCH (21:33)
[2022-11-12 01:18] VITALS: BP_SYST 129
--- NOTE | 2022-11-12 07:38 | NUR ---
OPENING NOTES: RECEIVED BEDSIDE SBAR FROM PM SHIFT NURSE, PATIENT RESTING WITH EYES CLOSED, NO S/S OF DISTRESS OR LABORED BREATHING ALL SAFETY CHECKED DONE. WILL CONT TO MONITOR PATIENT PER ORDERS.
--- NOTE | 2022-11-12 07:46 | NUR ---
PHYSICAL THERAPY CO-SIGN The Physical Therapy Progress Notes documented by Service Desk Director have been reviewed. Reviewed/Co-Signed by: Taj Carlton Documentation Done by: ALFONZO SANABRIA PTA Addendum: 11/12/22 at 0747 by Taj Carlton PT Amended: Links added.
[2022-11-12] MEDS: PANTOPRAZOLE SODIUM 40 MG/VIAL (PROTONIX) IVP SCH ×2 (09:00→20:41)
[2022-11-12] MEDS: RANOLAZINE 500 MG TAB.SR.12H PO SCH ×2 (09:06→20:42)
[2022-11-12] MEDS: SODIUM BICARBONATE 650 MG TABLET PO SCH ×2 (09:06→20:41)
[2022-11-12] MEDS: FOLIC ACID 1 MG TABLET PO SCH (09:06)
[2022-11-12] MEDS: GABAPENTIN 100 MG CAPSULE PO SCH (09:07)
[2022-11-12] MEDS: ENOXAPARIN SODIUM 100 MG/ML SYRINGE SUBCUT SCH (09:07)
[2022-11-12] MEDS: METOPROLOL SUCCINATE 25 MG TAB.SR.24H (TOPROL XL) PO SCH (09:08)
[2022-11-12] MEDS: MENTHOL/ZINC OXIDE 113 GM OINT. TP SCH (09:09)
[2022-11-12] MEDS: NYSTATIN 15 GM TOPICAL POWDER TP SCH ×2 (09:10→20:42)
[2022-11-12 11:31] VITALS: BP_SYST 108
--- NOTE | 2022-11-12 12:30 | NUR ---
ROUNDS: PATIENT REMAINS STABLE NO S/S OF ANY STRESS, LABOR BREATHING. ALL SAFETY CHECKS DONE, BED AT LOW AND LOCKED POSITION, CALL LIGHT IN REACH WILL CONT TO MONITOR
[2022-11-12 16:31] VITALS: BP_SYST 118
--- NOTE | 2022-11-12 18:48 | NUR ---
CLOSING NOTES: PATIENT REMAINED STABLE TODAY NO S/S OF ANY STRESS NO LABOR BREATHING, RESTING IN BED TOLERATED ALL MEALS AND MEDICATIONS, BED AT LOW AND LOCKED POSITION, CALL LIGHT IN REACH, PATIENT TURNED Q2H, WILL GIVE PM SHIFT NURSE BEDSIDE SBAR.
--- NOTE | 2022-11-12 19:15 | NUR ---
OPENING NOTE REPORT RECEIVED FROM DAYSHIFT NURSE. PATIENT RECEIVED LYING IN BED, AWAKE, NO S/S OF ACUTE DISTRESS. HOB RAISED. BREATHING EVEN AND UNLABORED. IV SITE PATENT, NO SIGNS OF INFILTRATION OR INFECTION NOTED. RAMOS ATTACHED, SECURED, AND DRAINING BY GRAVITY. CALL LIGHT WITH PATIENT. BED ALAR ON. BED IS LOCKED AND AT LOWEST POSITION. WILL CONTINUE TO MONITOR.
[2022-11-12 20:00] VITALS: BP_SYST 117
[2022-11-12] MEDS: ATORVASTATIN 20 MG TABLET PO SCH (20:41)
[2022-11-12] MEDS: ACETAMINOPHEN 325 MG TABLET PO PRN (20:42)
--- NOTE | 2022-11-12 23:12 | NUR ---
ROUNDS PATIENT IN BED, RESTING. NO SIGNS OF DISCOMFORT NOTED. ALL NEEDS MET. WILL MONITOR.
[2022-11-13 01:25] VITALS: BP_SYST 106
--- NOTE | 2022-11-13 06:26 | NUR ---
CLOSING NOTE PATIENT IN BED, RESTING, NO S/S OF ACUTE DISTRESS. BREATHING EVEN AND UNLABORED. HOB RAISED. IV SITE PATENT, NO SIGNS OF INFILTRATION OR INFECTION NOTED. RAMOS ATTACHED, SECURED, AND DRAINING BY GRAVITY. ALL NEEDS MET THROUGHOUT SHIFT. FALL, SAFETY PRECAUTIONS MAINTAINED THROUGHOUT SHIFT. WILL CONTINUE TO MONITOR UNTIL PATIENT CARE IS ENDORSED TO ONCOMING DAYSHIFT NURSE.
--- NOTE | 2022-11-13 07:56 | NUR ---
PHYSICAL THERAPY CO-SIGN The Physical Therapy Progress Notes documented by Tool And Die Maker have been reviewed. Reviewed/Co-Signed by: Taj Carlton Documentation Done by: ALFONZO SANABRIA PTA Addendum: 11/13/22 at 0757 by Taj Carlton PT Amended: Links added.
[2022-11-13 08:00] VITALS: BP_SYST 116
--- NOTE | 2022-11-13 08:00 | NUR ---
Initial notes Received patient wake in bed sleeping ,respiration even and unlabored, no signs distress. IV saline lock patent no signs of infiltration. Romero catheter below gravity draining clear yellow urine, no leakage. Continue all safety and precaution, patient reposition, bed in low position and call light w/in reached, continue to monitor.
[2022-11-13] MEDS: SODIUM BICARBONATE 650 MG TABLET PO SCH ×2 (08:16→21:43)
[2022-11-13] MEDS: GABAPENTIN 100 MG CAPSULE PO SCH (08:16)
[2022-11-13] MEDS: PANTOPRAZOLE SODIUM 40 MG/VIAL (PROTONIX) IVP SCH ×2 (08:16→21:41)
[2022-11-13] MEDS: RANOLAZINE 500 MG TAB.SR.12H PO SCH ×2 (08:17→21:43)
[2022-11-13] MEDS: METOPROLOL SUCCINATE 25 MG TAB.SR.24H (TOPROL XL) PO SCH (08:17)
[2022-11-13] MEDS: FOLIC ACID 1 MG TABLET PO SCH (08:17)
[2022-11-13] MEDS: ENOXAPARIN SODIUM 100 MG/ML SYRINGE SUBCUT SCH (08:18)
[2022-11-13] MEDS: MENTHOL/ZINC OXIDE 113 GM OINT. TP SCH (08:24)
[2022-11-13] MEDS: NYSTATIN 15 GM TOPICAL POWDER TP SCH ×2 (08:24→21:44)
[2022-11-13 12:10] VITALS: BP_SYST 99
[2022-11-13 16:00] VITALS: BP_SYST 134
--- NOTE | 2022-11-13 17:56 | NUR ---
Nutrition Note: RD rounded to patient room for nutrition f/u and s/w patient at bedside. Patient endorses good appetite today. Per pt RN, patient has been drinking ONS and eating meals, but he eats slow and requires encouragement. Shortened note d/t high RD workload. Late nutrition f/u note will be entered tomorrow 11/14. Janee Nichols MPH, RDN
--- NOTE | 2022-11-13 19:30 | NUR ---
Closing No c/o SOB/pain, vital signs w/in norm, maintain safety precaution during my shift, will endorse.
[2022-11-13 20:00] VITALS: BP_SYST 132
--- NOTE | 2022-11-13 20:00 | NUR ---
Opening note- Pt awake and oriented. resting in bed. C/o coccyx/sacral pain. Repositioned to be off pressure. 3-4+ Edema on BLE and scrotum. Kept elevate on pillow. F/C with clear urine.
[2022-11-13] MEDS ORDERED: FUROSEMIDE 40 MG/4 ML VIAL IVP ONE (20:45)
[2022-11-13] MEDS: ATORVASTATIN 20 MG TABLET PO SCH (21:42)
[2022-11-14 01:46] VITALS: BP_SYST 120
--- NOTE | 2022-11-14 06:51 | NUR ---
Closing note- pt had 2 BM. Applied calmoseptin cream on denuded area and nystatin power on bilateral groin and abdominal fold. Given Lasix 40 mg ivp per Electric Blasting Cap Assembler's order.
--- NOTE | 2022-11-14 07:52 | NUR ---
PHYSICAL THERAPY CO-SIGN The Physical Therapy Progress Notes documented by Meteorology Professor have been reviewed. Reviewed/Co-Signed by: Taj Carlton Documentation Done by: ALFONZO SANABRIA PTA Addendum: 11/14/22 at 0753 by Taj Carlton PT Amended: Links added.
[2022-11-14 08:00] VITALS: BP_SYST 123
--- NOTE | 2022-11-14 08:00 | NUR ---
Received patient wake in bed alert oriented x.3. Respiration even and unlabored, no signs of distress. Patient reposition, IV saline to left forearm patent. All safety precaution secure , bed in low position call light w/in reached
[2022-11-14] MEDS: ENOXAPARIN SODIUM 100 MG/ML SYRINGE SUBCUT SCH (08:48)
[2022-11-14] MEDS: PANTOPRAZOLE SODIUM 40 MG/VIAL (PROTONIX) IVP SCH ×2 (08:49→21:05)
[2022-11-14] MEDS: SODIUM BICARBONATE 650 MG TABLET PO SCH ×2 (08:50→21:05)
[2022-11-14] MEDS: RANOLAZINE 500 MG TAB.SR.12H PO SCH ×2 (08:50→21:06)
[2022-11-14] MEDS: FOLIC ACID 1 MG TABLET PO SCH (08:50)
[2022-11-14] MEDS: GABAPENTIN 100 MG CAPSULE PO SCH (08:50)
[2022-11-14] MEDS: MENTHOL/ZINC OXIDE 113 GM OINT. TP SCH (08:56)
[2022-11-14] MEDS: METOPROLOL SUCCINATE 25 MG TAB.SR.24H (TOPROL XL) PO SCH (08:58)
[2022-11-14] MEDS: NYSTATIN 15 GM TOPICAL POWDER TP SCH ×2 (09:00→21:08)
[2022-11-14 11:50] VITALS: BP_SYST 107
[2022-11-14 16:35] VITALS: BP_SYST 117
--- NOTE | 2022-11-14 18:13 | NUR ---
Nutrition F/U: RD reviewed pts current EMR including diet hx, physician notes, nursing notes, pertinent labs/meds/procedures, care trends and care activity. Shortened note d/t high RD workload. Admitting Diagnosis: GI bleed Reviewed Pertinent Medical/Surgical Hx: Medical Record, Patient Medical History Comment: Per EMR review, PMH unknown d/t pt's cognitive impairment. Pt admitted for AMS, hypotension. Dx of sepsis d/t pneumonia, JULI, possible GI bleed and sigmoid diverticulitis, acute blood loss anemia. EGD results 10/18: 2 duodenal ulcers w/o active bleeding. SARS-CoV-2 Ag (Rapid): Positive on 10/16 & 11/04 Subjective Information: 11/13: From Brief note - RD rounded to patient room for nutrition f/u and s/w patient at bedside. Patient endorses good appetite today. Per pt RN, patient has been drinking ONS and eating meals, but he eats slow and requires encouragement. Pt denied N/V/D/C and pt was unsure if he had been drinking Luis BID. RD asked Pt RN about Luis, however no Luis has been documented and RN was unaware of Prev RNs providing Luis to patient. Per EMR review, pt noted with 53% PO x 8 days and LBM documented 11/13 x 1. Patient with +2 BLE pitting edema and thigh/buttocks erythema plus IAD on rectum. 11/14: RN informed this RD that today she gave patient Luis beverage and patient stated he really enjoyed drinking it. Current Diet Order/Nutrition Support: GI Soft, Nepro BID, Luis BID x6 days Pertinent Medications: lovenox, sodium bicarb, protonix IV, folic acid, Lipitor, Metoprolol Pertinent Labs: Drawn 11/14: Na/K WNL, BG 131 H, BUN 41 H, CRE 2.5 H, WBC 14.7 H, H/H 7.4L/24.2 L Height: 6'0 Weight: 199#/90.3kg Body Mass Index: 26.99 kg/m2 %IBW: 120 [place]/Adjusted Body Weight: 178#/81kg IBW. Recent Weight Change: Unable to verify Weight Status: Overweight Last BM: Nov 13, 2022 Current % PO: 53% average x8 last meal records (improved) Estimated Energy Expenditure (kcals/day) 4464-6103 (30-35kcal/kg IBW d/t sepsis) Estimated Protein Required (g/day) 122-162 (1.5-2kcal/kg IBW d/t sepsis) Estimated Fluid Required (l/day) 2-2.3 (25-30kcal/kg IBW d/t GERIAT maintenance) Problem/Etiology/Signs/Symptoms * Increased energy needs R/T metabolic demands AEB estimated nutritional needs for sepsis. *Ongoing Expected Outcomes/Goals Monitor appetite and PO intakes w/ goal of meeting >75% estimated nutritional needs, labs trending WNL, normal GI function, and skin integrity/wt maintenance. Dietitian Recommendations * Continue GI Soft diet, Nepro BID, Luis BID (supplements yield 1020 kcal/day, 43 gm protein/day) * Provide feeding assistance and encouragement at mealtimes * Nursing please document Luis BID per EMR High Risk: F/U in 2-3 days
--- NOTE | 2022-11-14 18:15 | NUR ---
Dietitian Recommendations * Continue GI Soft diet, Nepro BID, Luis BID (supplements yield 1020 kcal/day, 43 gm protein/day) * Provide feeding assistance and encouragement at mealtimes * Nursing please document Luis BID per EMR Please refer to nutrition f/u for details, thanks! Janee Nichols MPH, RDN
--- NOTE | 2022-11-14 19:01 | NUR ---
Closing No c/o SOB/pain, vital signs w/in norm, maintain safety precaution during my shift, will endorse.
[2022-11-14 20:00] VITALS: BP_SYST 114
[2022-11-14] MEDS: ATORVASTATIN 20 MG TABLET PO SCH (21:07)
[2022-11-15] VITALS: BP_SYST 120
[2022-11-15 04:00] VITALS: BP_SYST 125
--- NOTE | 2022-11-15 06:08 | NUR ---
Pt had small amount of brown stool. No s/sx of GIB. Repositioned and provided skin care on buttock- IAD. F/C patent. kept bilateral leg on pillow- 4+ edema.
--- NOTE | 2022-11-15 07:25 | NUR ---
RECV'D REPORT AND PT. FROM NIGHT NURSE IGLESIA. PT. IS STABLE LYING DOWN IN BED. BED IN LOWEST POSITION W/ CALL HERNANDEZ W/ IN REACH. WILL MONITOR.
--- NOTE | 2022-11-15 08:07 | NUR ---
PHYSICAL THERAPY CO-SIGN The Physical Therapy Progress Notes documented by Client Solutions Director have been reviewed. Reviewed/Co-Signed by: Taj Carlton Documentation Done by: ALFONZO SANABRIA PTA Addendum: 11/15/22 at 0807 by Taj Carlton PT Amended: Links added.
[2022-11-15] MEDS: NYSTATIN 15 GM TOPICAL POWDER TP SCH ×2 (09:00→23:33)
[2022-11-15] MEDS: METOPROLOL SUCCINATE 25 MG TAB.SR.24H (TOPROL XL) PO SCH (09:00)
[2022-11-15] MEDS: FOLIC ACID 1 MG TABLET PO SCH (09:00)
[2022-11-15] MEDS: GABAPENTIN 100 MG CAPSULE PO SCH (09:00)
[2022-11-15] MEDS: PANTOPRAZOLE SODIUM 40 MG/VIAL (PROTONIX) IVP SCH ×2 (09:00→23:32)
[2022-11-15] MEDS: ENOXAPARIN SODIUM 100 MG/ML SYRINGE SUBCUT SCH (09:00)
[2022-11-15] MEDS: SODIUM BICARBONATE 650 MG TABLET PO SCH ×2 (09:00→23:33)
[2022-11-15] MEDS: RANOLAZINE 500 MG TAB.SR.12H PO SCH ×2 (09:00→23:32)
[2022-11-15] MEDS: MENTHOL/ZINC OXIDE 113 GM OINT. TP SCH (09:00)
--- NOTE | 2022-11-15 11:41 | NUR ---
Spoke w/ Taisha at [facility]-she has not given auth to Nicole Luna because she has no PT notes for the patient. PT notes Faxed to Taisha at [phone]
[2022-11-15 11:50] VITALS: BP_SYST 114
[2022-11-15 17:45] VITALS: BP_SYST 113
--- NOTE | 2022-11-15 19:16 | NUR ---
ENDORSED PT. TO NIGHT NURSE. PT. AAOX3, STABLE AND BED RIDDEN. SWELLING REMAINS IN BLE AND SCROTUM. PT. DENIED PAIN THROUGHOUT SHIFT. LBM TODAY. ELEVATED BLE ON 2 PILLOWS THROUGHOUT SHIFT. ALL SAFETY PRECAUTIONS REMAIN IN PLACE.
[2022-11-15 20:00] VITALS: BP_SYST 116
[2022-11-15] MEDS: ATORVASTATIN 20 MG TABLET PO SCH (23:32)
[2022-11-16 07:56] VITALS: BP_SYST 111
[2022-11-16] MEDS: METOPROLOL SUCCINATE 25 MG TAB.SR.24H (TOPROL XL) PO SCH (09:00)
[2022-11-16] MEDS: GABAPENTIN 100 MG CAPSULE PO SCH (09:10)
[2022-11-16] MEDS: FOLIC ACID 1 MG TABLET PO SCH (09:10)
[2022-11-16] MEDS: PANTOPRAZOLE SODIUM 40 MG/VIAL (PROTONIX) IVP SCH ×2 (09:10→21:39)
[2022-11-16] MEDS: RANOLAZINE 500 MG TAB.SR.12H PO SCH ×2 (09:11→21:40)
[2022-11-16] MEDS: SODIUM BICARBONATE 650 MG TABLET PO SCH ×2 (09:11→21:40)
[2022-11-16] MEDS: NYSTATIN 15 GM TOPICAL POWDER TP SCH ×2 (09:16→21:43)
[2022-11-16] MEDS: MENTHOL/ZINC OXIDE 113 GM OINT. TP SCH (09:16)
[2022-11-16] MEDS: ENOXAPARIN SODIUM 100 MG/ML SYRINGE SUBCUT SCH (09:35)
[2022-11-16 10:42] VITALS: BP_SYST 99
[2022-11-16 12:00] VITALS: BP_SYST 118
[2022-11-16 15:58] VITALS: BP_SYST 110
--- NOTE | 2022-11-16 18:06 | NUR ---
PATIENT REQUESTED TO GET OUT OF BED. ATTEMPTED WITH OTHER NURSE BUT PATIENT TOO WEAK KEEPING PT ON SIDE DUE TO PAIN IN SACRAL AREA. REFUSED LUNCH PUSHING FLUID'S UOP TAMMY DARK. PATIENT HAS NO PROBLEM DRINKING WHEN OFFERED DRINK. FAMILY HERE UP DATED ON STATUS. DENIES PAIN NO PAIN MED'S GIVEN THIS SHIFT. VERY TIRED SLEEPING ALOT TODAY.
[2022-11-16 20:05] VITALS: BP_SYST 102
[2022-11-16] MEDS: ATORVASTATIN 20 MG TABLET PO SCH (21:40)
[2022-11-16] MEDS: ACETAMINOPHEN 325 MG TABLET PO PRN (21:41)
--- NOTE | 2022-11-17 | NUR ---
BED BATH WAS DONE PT WAS REPOSITION Z OLGA AND CALMOSEPTINE WAS APPLIED TO BOTTOM
[2022-11-17 00:46] VITALS: BP_SYST 97
[2022-11-17 08:39] VITALS: BP_SYST 133
[2022-11-17] MEDS: SODIUM BICARBONATE 650 MG TABLET PO SCH ×2 (09:00→21:26)
[2022-11-17] MEDS: METOPROLOL SUCCINATE 25 MG TAB.SR.24H (TOPROL XL) PO SCH (09:00)
[2022-11-17] MEDS: GABAPENTIN 100 MG CAPSULE PO SCH (09:00)
[2022-11-17] MEDS: RANOLAZINE 500 MG TAB.SR.12H PO SCH ×2 (09:00→21:26)
[2022-11-17] MEDS: MENTHOL/ZINC OXIDE 113 GM OINT. TP SCH (09:00)
[2022-11-17] MEDS: PANTOPRAZOLE SODIUM 40 MG/VIAL (PROTONIX) IVP SCH ×2 (09:00→21:26)
[2022-11-17] MEDS: FOLIC ACID 1 MG TABLET PO SCH (09:00)
[2022-11-17] MEDS: NYSTATIN 15 GM TOPICAL POWDER TP SCH ×2 (09:00→21:32)
[2022-11-17] MEDS ORDERED: ENOXAPARIN SODIUM 60 MG/0.6 ML SYRINGE SUBCUT ONE (10:45)
[2022-11-17] MEDS ORDERED: ENOXAPARIN SODIUM 40 MG/0.4 ML SYRINGE SUBCUT ONE (10:45)
--- NOTE | 2022-11-17 11:31 | NUR ---
Nutrition F/U: Admitting Diagnosis: GI bleed Reviewed Pertinent Medical/Surgical Hx: Medical Record, Patient Medical History Comment: Per EMR review, PMH unknown d/t pt's cognitive impairment. Pt admitted for AMS, hypotension. Dx of sepsis d/t pneumonia, JULI, possible GI bleed and sigmoid diverticulitis, acute blood loss anemia. EGD results 10/18: 2 duodenal ulcers w/o active bleeding. SARS-CoV-2 Ag (Rapid): Positive on 10/16 & 11/04 Subjective Information: RD rounded to pt room, pt was talking with the RN, Birdie,and enjoying a Lug Loader brownie. He denies any GI symptoms; pt says his big problem is his legs are in pain, swollen and he cannot really walk. He wants to get out of the hospital soon. He reports a decent appetite but does not like our eggs; RD noted in computrition. Pt reports that he is not drinking the Nepro and RD said she could take it off order. Also that he is only consuming 1 Luis, and to please only send 1. Per EMR review, pt noted with 68% average x 9 meals, and LBM documented 11/17 x 2. Patient with thigh/buttocks erythema plus IAD on rectum. Current Diet Order/Nutrition Support: GI Soft, Nepro BID, Luis BID x 10 days Pertinent Medications: lovenox, sodium bicarb, protonix IV, folic acid, Lipitor Pertinent Labs: Drawn 11/09: Na/K WNL, BG 131 H, BUN 41 H, CRE 2.5 H, WBC 14.7 H, H/H 7.8L/24.2 L Height: 6'0 Weight: 199#/90.3kg *stable since 10/16 Body Mass Index: 26.99 kg/m2 %IBW: 120 [place]/Adjusted Body Weight: 178#/81kg IBW. Recent Weight Change: Unable to verify Weight Status: Overweight Last BM: Nov 17, 2022 x 2 Current % PO: 68% average x9 last meal records (improved) Estimated Energy Expenditure (kcals/day) 2236-6449 (30-35kcal/kg IBW d/t sepsis) Estimated Protein Required (g/day) 122-162 (1.5-2kcal/kg IBW d/t sepsis) Estimated Fluid Required (l/day) 2-2.3 (25-30kcal/kg IBW d/t GERIAT maintenance) Problem/Etiology/Signs/Symptoms * Increased energy needs R/T metabolic demands AEB estimated nutritional needs for sepsis. *Ongoing Expected Outcomes/Goals Monitor appetite and PO intakes w/ goal of meeting >75% estimated nutritional needs, labs trending WNL, normal GI function, and skin integrity/wt maintenance. Dietitian Recommendations * Continue GI Soft diet, Luis once daily. DC Nepro, as pt is not drinking them. Only send 1 luis daily * Provide feeding assistance and encouragement at mealtimes * Nursing please document Luis BID per EMR * Send snacks in between meals; RD noted in computrition Moderate Risk: F/U in 3-5 days GS, MPH, RD
--- NOTE | 2022-11-17 11:33 | NUR ---
Dietitian Recommendations * Continue GI Soft diet, Luis once daily. DC Nepro, as pt is not drinking them. Only send 1 luis daily * Provide feeding assistance and encouragement at mealtimes * Nursing please document Luis BID per EMR * Send snacks in between meals; RD noted in computrition GS, MPH, RD Please refer to Nutrition F/U for further details. Thanks!
[2022-11-17 11:49] VITALS: BP_SYST 116
[2022-11-17 16:00] VITALS: BP_SYST 95
[2022-11-17 16:42] VITALS: BP_SYST 118
[2022-11-17 20:25] VITALS: BP_SYST 98
[2022-11-17] MEDS: ATORVASTATIN 20 MG TABLET PO SCH (21:26)
[2022-11-17] MEDS: ACETAMINOPHEN 325 MG TABLET PO PRN (21:27)
[2022-11-18 00:40] VITALS: BP_SYST 94
--- NOTE | 2022-11-18 01:16 | NUR ---
BED BATH WAS DONE PT WAS REPOSITION Z OLGA AND CALMOSEPTINE WAS APPLIED TO BOTTOM
[2022-11-18 08:02] VITALS: BP_SYST 127
[2022-11-18] MEDS: RANOLAZINE 500 MG TAB.SR.12H PO SCH ×2 (09:04→22:13)
[2022-11-18] MEDS: SODIUM BICARBONATE 650 MG TABLET PO SCH ×2 (09:04→22:13)
[2022-11-18] MEDS: GABAPENTIN 100 MG CAPSULE PO SCH (09:04)
[2022-11-18] MEDS: FOLIC ACID 1 MG TABLET PO SCH (09:04)
[2022-11-18] MEDS: METOPROLOL SUCCINATE 25 MG TAB.SR.24H (TOPROL XL) PO SCH (09:05)
[2022-11-18] MEDS: PANTOPRAZOLE SODIUM 40 MG/VIAL (PROTONIX) IVP SCH ×2 (09:05→22:14)
[2022-11-18] MEDS: ENOXAPARIN SODIUM 40 MG/0.4 ML SYRINGE SUBCUT SCH (09:05)
[2022-11-18] MEDS: ENOXAPARIN SODIUM 60 MG/0.6 ML SYRINGE SUBCUT SCH (09:06)
[2022-11-18] MEDS: MENTHOL/ZINC OXIDE 113 GM OINT. TP SCH (09:10)
[2022-11-18] MEDS: NYSTATIN 15 GM TOPICAL POWDER TP SCH ×2 (09:10→22:16)
[2022-11-18 17:00] VITALS: BP_SYST 112
[2022-11-18 19:30] VITALS: BP_SYST 98
[2022-11-18] MEDS ORDERED: FUROSEMIDE 40 MG/4 ML VIAL IVP ONE (20:00)
[2022-11-18] MEDS: ATORVASTATIN 20 MG TABLET PO SCH (22:13)
[2022-11-19 00:59] VITALS: BP_SYST 103
[2022-11-19 07:37] VITALS: BP_SYST 104
[2022-11-19] MEDS: GABAPENTIN 100 MG CAPSULE PO SCH (08:56)
[2022-11-19] MEDS: SODIUM BICARBONATE 650 MG TABLET PO SCH ×2 (08:56→21:56)
[2022-11-19] MEDS: FOLIC ACID 1 MG TABLET PO SCH (08:56)
[2022-11-19] MEDS: RANOLAZINE 500 MG TAB.SR.12H PO SCH ×2 (08:56→21:56)
[2022-11-19] MEDS: ENOXAPARIN SODIUM 60 MG/0.6 ML SYRINGE SUBCUT SCH (08:57)
[2022-11-19] MEDS: ENOXAPARIN SODIUM 40 MG/0.4 ML SYRINGE SUBCUT SCH (08:57)
[2022-11-19] MEDS: METOPROLOL SUCCINATE 25 MG TAB.SR.24H (TOPROL XL) PO SCH (08:58)
[2022-11-19] MEDS: PANTOPRAZOLE SODIUM 40 MG/VIAL (PROTONIX) IVP SCH ×2 (08:59→21:57)
[2022-11-19] MEDS: MENTHOL/ZINC OXIDE 113 GM OINT. TP SCH (09:00)
[2022-11-19] MEDS: NYSTATIN 15 GM TOPICAL POWDER TP SCH ×2 (09:00→21:56)
[2022-11-19 11:37] VITALS: BP_SYST 100
--- NOTE | 2022-11-19 15:18 | NUR ---
INFORMED DR ORDOÑEZ THAT I JUST SPOKE WITH [facility] [phone] AND [facility] IS REQUESTING FOR NEW LABS AND DISCHARGE SUMMARY THAT NEEDS TO BE FAXED TO THEM.
[2022-11-19 15:57] LABS: BASOPHILS % (AUTO) 0.1 % (0.0-2.0); EOSINOPHILS # (AUTO) 0.1 K/uL (0.0-0.4); EOSINOPHILS % (AUTO) 1.4 % (0.0-4.0); HEMATOCRIT 24.8 % (36-54); LYMPHOCYTES # (AUTO) 1.4 K/uL (1.0-5.5); LYMPHOCYTES % (AUTO) 19.1 % (20.5-51.5); MEAN CORPUSCULAR HEMOGLOBIN 31 pg (27-31); MEAN CORPUSCULAR HGB CONC 32 % (32-36); MEAN CORPUSCULAR VOLUME 96 fL (79.0-98.0); MONOCYTES # (AUTO) 1.1 K/uL (0.0-1.0); MONOCYTES % (AUTO) 15.1 % (1.7-9.3); NEUTROPHILS # (AUTO) 4.6 K/uL (1.8-7.7); NEUTROPHILS % (AUTO) 64.3 % (40.0-70.0); PLATELET COUNT (AUTO) 360 K/uL (130-430); RED BLOOD CELL COUNT(AUTO) 2.59 MIL/uL (4.2-6.2); RED CELL DISTRIBUTION WIDTH 17.6 % (9.0-15.0); WHITE BLOOD COUNT (AUTO) 7.1 K/uL (4.8-10.8)
[2022-11-19 16:26] VITALS: BP_SYST 106
[2022-11-19 16:49] LABS: ALANINE AMINOTRANSFERASE 32 U/L (12-78); ALBUMIN 1.5 g/dL (3.4-4.8); ANION GAP 4 (5-15); ASPARTATE AMINOTRANSFERASE 38 U/L (10-37); CALCIUM 7.4 mg/dL (8.4-11.0); CHLORIDE 101 mmol/L (98-107); CREATININE 2.25 mg/dL (0.55-1.30); GLUCOSE 110 mg/dL (70-99); TOTAL BILIRUBIN 0.3 mg/dL (0.0-1.0); UREA NITROGEN, BLOOD 27 mg/dL (8-21)
--- NOTE | 2022-11-19 18:07 | NUR ---
PHYSICAL THERAPY CO-SIGN The Physical Therapy Progress Notes documented by Behavioral Geneticist have been reviewed. Reviewed/Co-Signed by: Teena Dobbs PT Documentation Done by:ALFONZO SANABRIA PTA REC: [facility] Addendum: 11/19/22 at 1808 by Teena Dobbs PT Amended: Links added.
--- NOTE | 2022-11-19 18:50 | NUR ---
FAXED TO [facility] THE LAB RESULTS, XRAY RESULTS. Addendum: 11/19/22 at 1950 by Marcelino Zacarias RN VENITA HUERTA THAT DR ORDOÑEZ HAS NOT DICATED HIS DC SUMMARY.
[2022-11-19 20:25] VITALS: BP_SYST 105
[2022-11-19] MEDS: ATORVASTATIN 20 MG TABLET PO SCH (21:56)
[2022-11-20] MEDS: PANTOPRAZOLE SODIUM 40 MG/VIAL (PROTONIX) IVP SCH ×2 (10:15→20:48)
[2022-11-20] MEDS: ENOXAPARIN SODIUM 100 MG/ML SYRINGE SUBCUT SCH (10:15)
[2022-11-20] MEDS: SODIUM BICARBONATE 650 MG TABLET PO SCH (10:16)
[2022-11-20] MEDS: GABAPENTIN 100 MG CAPSULE PO SCH (10:16)
[2022-11-20] MEDS: FOLIC ACID 1 MG TABLET PO SCH (10:16)
[2022-11-20] MEDS: RANOLAZINE 500 MG TAB.SR.12H PO SCH ×2 (10:16→20:48)
[2022-11-20] MEDS: METOPROLOL SUCCINATE 25 MG TAB.SR.24H (TOPROL XL) PO SCH (10:17)
[2022-11-20] MEDS: MENTHOL/ZINC OXIDE 113 GM OINT. TP SCH (10:18)
[2022-11-20] MEDS: NYSTATIN 15 GM TOPICAL POWDER TP SCH ×2 (10:19→20:53)
[2022-11-20 12:00] VITALS: BP_SYST 115
[2022-11-20 16:00] VITALS: BP_SYST 109
--- NOTE | 2022-11-20 17:52 | NUR ---
0800: ASLEEP AROUSABLE WITH VERBAL STIMULI, ORIENTED X 3 TO NAME, PERSON, AND PLACE. RESPIRATION EVEN AND UNLABORED NO S/S OF ANY ACUTE DISTRESS NOTED. ABLE TO VERBALIZE NEEDS NO C/O ANY PAIN OR DISCOMFORT @ THIS TIME. ABDOMEN SOFT AND NON-DISTENDED, POSITIVE BOWEL SOUND X 4. WILL CONTINUE TO MONITOR PATIENT 1300: TOLERATED PO WELL WITH GOOD APPETITE NO ABDOMINAL DISCOMFORT NOTED. J 1700: CALL FROM [facility], UPDATED PRN. STILL WAITING FOR AVAILABLE ROOM, PATIENT MADE AWARE
[2022-11-20] MEDS ORDERED: FUROSEMIDE 40 MG/4 ML VIAL IVP ONE (19:45)
[2022-11-20 20:00] VITALS: BP_SYST 120
--- NOTE | 2022-11-20 20:00 | NUR ---
Pt awake and oriented x 3. f/c patent and had BM. Given pericare. Given LASIX 40 MG IVP X 1.
[2022-11-20] MEDS: ATORVASTATIN 20 MG TABLET PO SCH (20:47)
[2022-11-20] MEDS: FERROUS SULFATE 325 MG TABLET.DR PO SCH (20:48)
[2022-11-21 00:07] VITALS: BP_SYST 111
--- NOTE | 2022-11-21 05:49 | NUR ---
No s/sx of any distress. Applied skin barrier cream on buttock/sacral redness area-IAD.
[2022-11-21 08:45] VITALS: BP_SYST 112
[2022-11-21 11:38] VITALS: BP_SYST 124
[2022-11-21] MEDS: ENOXAPARIN SODIUM 100 MG/ML SYRINGE SUBCUT SCH (11:46)
[2022-11-21] MEDS: PANTOPRAZOLE SODIUM 40 MG/VIAL (PROTONIX) IVP SCH ×2 (11:47→21:39)
[2022-11-21] MEDS: METOPROLOL SUCCINATE 25 MG TAB.SR.24H (TOPROL XL) PO SCH (11:48)
[2022-11-21] MEDS: GABAPENTIN 100 MG CAPSULE PO SCH (11:49)
[2022-11-21] MEDS: FERROUS SULFATE 325 MG TABLET.DR PO SCH ×2 (11:49→21:39)
[2022-11-21] MEDS: RANOLAZINE 500 MG TAB.SR.12H PO SCH ×2 (11:49→21:39)
[2022-11-21] MEDS: FOLIC ACID 1 MG TABLET PO SCH (11:49)
[2022-11-21] MEDS: NYSTATIN 15 GM TOPICAL POWDER TP SCH ×2 (11:50→21:40)
[2022-11-21] MEDS: MENTHOL/ZINC OXIDE 113 GM OINT. TP SCH (11:50)
--- NOTE | 2022-11-21 12:09 | NUR ---
Called and spoke to Dr. Diaz to update with transfer status to [facility]. Informed that Linda regulatory compliance manager from is requesting for CBC and BMP lab works for today and d/c summary from him and doctor from will call Dr. Diaz. Orders received and will call Akilah [employer]LO[employer] to inform with plan of care.
[2022-11-21 14:29] LABS: BASOPHILS # (AUTO) 0.1 K/uL (0.0-0.2); BASOPHILS % (AUTO) 1.2 % (0.0-2.0); EOSINOPHILS # (AUTO) 0.1 K/uL (0.0-0.4); EOSINOPHILS % (AUTO) 2.1 % (0.0-4.0); HEMOGLOBIN 8.8 g/dL (14.0-18.0); LYMPHOCYTES # (AUTO) 1.2 K/uL (1.0-5.5); LYMPHOCYTES % (AUTO) 18.1 % (20.5-51.5); MEAN CORPUSCULAR HEMOGLOBIN 32 pg (27-31); MEAN CORPUSCULAR HGB CONC 33 % (32-36); MEAN CORPUSCULAR VOLUME 96 fL (79.0-98.0); MONOCYTES # (AUTO) 0.8 K/uL (0.0-1.0); MONOCYTES % (AUTO) 12.4 % (1.7-9.3); NEUTROPHILS # (AUTO) 4.4 K/uL (1.8-7.7); NEUTROPHILS % (AUTO) 66.2 % (40.0-70.0); PLATELET COUNT (AUTO) 360 K/uL (130-430); RED CELL DISTRIBUTION WIDTH 17.5 % (9.0-15.0); WHITE BLOOD COUNT (AUTO) 6.7 K/uL (4.8-10.8)
[2022-11-21 14:44] LABS: ANION GAP 7 (5-15); CALCIUM 7.8 mg/dL (8.4-11.0); CHLORIDE 100 mmol/L (98-107); CREATININE 2.08 mg/dL (0.55-1.30); GLUCOSE 123 mg/dL (70-99); UREA NITROGEN, BLOOD 24 mg/dL (8-21)
--- NOTE | 2022-11-21 15:13 | NUR ---
Called and spoke to Linda SHANE from to update with current cbc and bmp results. Pt stable at this time. States that she will call again for ETA transport.
[2022-11-21 16:04] VITALS: BP_SYST 126
[2022-11-21 20:19] VITALS: BP_SYST 126
[2022-11-21] MEDS: ATORVASTATIN 20 MG TABLET PO SCH (21:40)
[2022-11-22] MEDS ORDERED: EPOETIN ALFA 10,000 UNITS/ML VIAL SUBCUT SCH (17:00)
== END 2022-11-22 00:01 | DRG 871 ==
LOC: SED 08:01 → STU 12:57 → SMU 10-29 23:47 → SIC 10-30 20:38 → SMU 11-01 23:17 → STU 11-02 02:08 → SMU 11-12 22:22
PROVIDERS: ADMIT Internal Medicine; ATTEND Internal Medicine
PROC: 05H333Z Insertion of Infusion Device into Right Innominate Vein, Percutaneous Approach (ICD-10-PCS; principal; 2022-10-16)
PROC: B54MZZA Ultrasonography of Right Upper Extremity Veins, Guidance (ICD-10-PCS; 2022-10-16)
PROC: 0DB78ZX Excision of Stomach, Pylorus, Via Natural or Artificial Opening Endoscopic, Diagnostic (ICD-10-PCS; 2022-10-18)
PROC: 30233N1 Transfusion of Nonautologous Red Blood Cells into Peripheral Vein, Percutaneous Approach (ICD-10-PCS; 2022-10-18)
DX: A41.9 Sepsis, unspecified organism (principal); J12.82 Pneumonia due to coronavirus disease 2019; U07.1 COVID-19; K26.4 Chronic or unspecified duodenal ulcer with hemorrhage; N17.9 Acute kidney failure, unspecified; D62 Acute posthemorrhagic anemia; K57.32 Diverticulitis of large intestine without perforation or abscess without bleeding; I82.413 Acute embolism and thrombosis of femoral vein, bilateral; I82.433 Acute embolism and thrombosis of popliteal vein, bilateral; E87.20 Acidosis, unspecified; I13.0 Hypertensive heart and chronic kidney disease with heart failure and stage 1 through stage 4 chronic kidney disease, or unspecified chronic kidney disease; D72.829 Elevated white blood cell count, unspecified; N50.89 Other specified disorders of the male genital organs; R33.9 Retention of urine, unspecified; D63.1 Anemia in chronic kidney disease; E83.51 Hypocalcemia; K29.70 Gastritis, unspecified, without bleeding; E83.39 Other disorders of phosphorus metabolism; E78.5 Hyperlipidemia, unspecified; I50.9 Heart failure, unspecified; N18.9 Chronic kidney disease, unspecified
CPT/HCPCS: 36415; 43239; 70450-TC; 71045; 76376; 76770; 76870-TC; 80048; 80053; 80061; 80202; 81000; 82150; 82550; 83605; 83690; 83735; 83880; 83970; 84100; 84443; 84484; 85007; 85025; 85027; 85610-TC; 85730-TC; 86886; 86900; 86901; 86920; 87040; 87081; 87086; 88305; 88312; 88313; 93005; 93970; 96361; 96365; 96367; 96368; 97110-GP; 97112-GP; 97530-GP; 99285; C9113; G0378; J0610; J0885; J1200; J1265; J1650; J1940; J1956; J2250; J2543; J3010; J3370; J3490; J7030; J7050; J7060; P9021; P9046